=== PATIENT | male | born 1955 | race Caucasian/White ===

== ENCOUNTER → 2016-08-03 | Outpatient (REF) | payer MEDICARE, MEDICAID ==
[~2016-08-03] MED LIST: ALBU83IN INH; ATEN50TA2 PO; ATOR1TAB21 PO; Benzonatate PO; CLOB0.0548 TOP; DULC10SU2 PR; FERR325T PO; FLEEENE4 PR; LAMI200T3 PO; LASI80TA PO; LEVA750T PO; METO25TAB PO; MILKSUS PO; POTA10CA PO; SENO8.6T10 PO; SODIGEL; SPIR25TA2 PO; TYLE325T5 PO; TYLE500T78 PO; VITMTA PO; XARE20TA PO; [UNRECOGNIZED DRUG - CODE] PO
[2016-08-03 08:29] LABS: MEAN CORPUSCULAR HEMOGLOBIN 24.8 pg (27.0-33.0); MEAN CORPUSCULAR HGB CONC 31.6 g/dl (32.0-36.5); MEAN CORPUSCULAR VOLUME 78.7 fl (80.0-96.0); RED CELL DISTRIBUTION WIDTH 17.7 % (11.5-14.5); WHITE BLOOD COUNT 12.7 K/mm3 (4.0-10.0)
[2016-08-03 09:42] LABS: ALBUMIN 3.4 GM/DL (3.2-5.2); ALBUMIN/GLOBULIN RATIO 1.17 (1.00-1.93); BILIRUBIN,TOTAL 0.3 MG/DL (0.2-1.0); CALCIUM LEVEL 8.8 MG/DL (8.8-10.2); CREATININE FOR GFR 1.6 MG/DL (0.70-1.30); POTASSIUM SERUM 4.4 MEQ/L (3.5-5.1); TOTAL PROTEIN 6.3 GM/DL (6.4-8.2)
== END ==
LOC: SKLAB7 07:00
DX: E11.9 Type 2 diabetes mellitus without complications (principal); I25.10 Atherosclerotic heart disease of native coronary artery without angina pectoris; E78.5 Hyperlipidemia, unspecified

== ENCOUNTER → 2016-08-31 | Outpatient (REF) | payer MEDICARE, MEDICAID ==
[2016-08-31 09:34] LABS: MEAN CORPUSCULAR HEMOGLOBIN 25.2 pg (27.0-33.0); MEAN CORPUSCULAR HGB CONC 31.8 g/dl (32.0-36.5); MEAN CORPUSCULAR VOLUME 79.2 fl (80.0-96.0); PLATELET COUNT, AUTOMATED 298 k/mm3 (150-450); RED CELL DISTRIBUTION WIDTH 16.2 % (11.5-14.5)
[2016-08-31 10:02] LABS: CREATININE FOR GFR 1.62 MG/DL (0.70-1.30); GLOMERULAR FILTRATION RATE 46.3 (>49)
[2016-08-31 15:24] LABS: DIFF SLIDE NUMBER 111
[2016-08-31 19:38] LABS: EOSINOPHILS 1 % (0-5)
== END ==
LOC: SKLAB7 08:00
DX: E11.9 Type 2 diabetes mellitus without complications (principal); I50.9 Heart failure, unspecified; D64.9 Anemia, unspecified

== ENCOUNTER → 2016-09-13 | Outpatient (REF) | payer MEDICARE, MEDICAID ==
[~2016-09-13] MED LIST changes: +AVEL1TAB PO; +BACITAB3 PO; +ENEM1ENE4 PR; +FURO40TA2 PO; +IPRASOL4 INH; +LOPE2TAB3 PO; +METO25TA PO; +PANT40TA2 PO; +POTA10LI10 PO; +PRED20TA PO; +PROT1TAB2 PO; +TERC0.4C TOP; +XARE15TA PO
[2016-09-13 14:31] LABS: CALCIUM LEVEL 9.2 MG/DL (8.8-10.2); CREATININE FOR GFR 1.62 MG/DL (0.70-1.30); GLOMERULAR FILTRATION RATE 46.3 (>49); POTASSIUM SERUM 4.3 MEQ/L (3.5-5.1)
[2016-09-13 14:51] LABS: BASO % 0.1 % (0.0-1.0); EOS # 0.1 K/mm3 (0.0-0.50); EOS % 0.5 % (0.0-3.0); LARGE UNSTAINED CELL # 0.2 K/mm3 (0.0-0.4); LARGE UNSTAINED CELL % 0.9 % (0.0-4.0); LYMPH # 1.2 K/mm3 (1.5-4.5); LYMPH % 6.5 % (24.0-44.0); MEAN CORPUSCULAR HEMOGLOBIN 25.7 pg (27.0-33.0); MEAN CORPUSCULAR HGB CONC 31.7 g/dl (32.0-36.5); MONO # 0.7 K/mm3 (0.0-0.8); MONO % 3.5 % (0.0-5.0); NEUTROPHILS # 16.9 K/mm3 (1.8-7.7); NEUTROPHILS % 88.5 % (36.0-66.0); PLATELET COUNT, AUTOMATED 291 k/mm3 (150-450); RED CELL DISTRIBUTION WIDTH 16.8 % (11.5-14.5); WHITE BLOOD COUNT 19.1 K/mm3 (4.0-10.0)
--- NOTE | 2016-09-13 16:27 | REP ---
PORTABLE CHEST: Single AP portable view of the chest was performed and compared to prior study of 07/04/2016. There are bilateral chronic interstitial findings with no evidence of new infiltrate. The heart appears enlarged. Mediastinal silhouette is unchanged. Mediastinal silhouette is unchanged. Study is limited as the patients chin overlies the left apex. Chest wall calcifications are again noted bilaterally. IMPRESSION: Cardiomegaly. No evidence of acute infiltrate. Signed by Nilson Feldman MD 09/13/2016 05:25 P
== END ==
LOC: SKLAB7 12:48
DX: I51.7 Cardiomegaly (principal); R05 Cough; R06.02 Shortness of breath

== ENCOUNTER 2016-09-16 16:26 | Inpatient (IN) | payer MEDICARE, MEDICAID ==
[~2016-09-16] VITALS: Ht 167.6 cm; Wt 124.1 kg
[~2016-09-16 16:26] MED LIST changes: -AVEL1TAB PO; -BACITAB3 PO; -ENEM1ENE4 PR; -FURO40TA2 PO; -IPRASOL4 INH; -LOPE2TAB3 PO; -METO25TA PO; -PANT40TA2 PO; -POTA10LI10 PO; -PRED20TA PO; -PROT1TAB2 PO; -TERC0.4C TOP; -XARE15TA PO
[2016-09-16] MEDS ORDERED: methylPREDNISolone INJ 125 MG/2 ML VIAL (J2930) IV ONE (16:45)
[2016-09-16 17:02] LABS: BASO % 0.1 % (0.0-1.0); EOS # 0.1 K/mm3 (0.0-0.50); EOS % 0.5 % (0.0-3.0); LARGE UNSTAINED CELL # 0.2 K/mm3 (0.0-0.4); LARGE UNSTAINED CELL % 0.6 % (0.0-4.0); LYMPH # 1.4 K/mm3 (1.5-4.5); LYMPH % 5.4 % (24.0-44.0); MEAN CORPUSCULAR HGB CONC 32.2 g/dl (32.0-36.5); MEAN CORPUSCULAR VOLUME 80.8 fl (80.0-96.0); MONO # 0.3 K/mm3 (0.0-0.8); NEUTROPHILS # 24.8 K/mm3 (1.8-7.7); NEUTROPHILS % 92.4 % (36.0-66.0); PLATELET COUNT, AUTOMATED 384 k/mm3 (150-450); RED CELL DISTRIBUTION WIDTH 16.7 % (11.5-14.5); WHITE BLOOD COUNT 26.9 K/mm3 (4.0-10.0)
[2016-09-16] MEDS: IPRATROPIUM 0.5MG/ALBUTEROL 2.5MG INH SOL UD 3ML (DUONEB)(J7620) NEB PRN ×2 (17:05→17:18)
[2016-09-16] MEDS ORDERED: POTA10LI10 PO (17:08)
[2016-09-16 17:09] LABS: ABG BASE EXCESS -2.8 (-2.0-2.0); ABG PARTIAL PRESSURE CO2 55.4 mmHg (35.0-45.0); ABG PARTIAL PRESSURE O2 78.5 mmHg (75.0-100.0); ABG STANDARD HCO3 22.1 MEQ/L (22.0-26.0); ABG TOTAL CO2 26.7 MEQ/L (23.0-31.0); ABG pH (ARTERIAL) 7.272 UNITS (7.350-7.450)
[2016-09-16] MEDS ORDERED: PROT1TAB2 PO (17:18)
[2016-09-16] MEDS ORDERED: IPRASOL4 INH (17:18)
[2016-09-16] MEDS ORDERED: BACITAB3 PO (17:18)
[2016-09-16] MEDS ORDERED: PRED20TA PO ×2 (17:18→18:44)
[2016-09-16] MEDS ORDERED: AVEL1TAB PO (17:18)
[2016-09-16] MEDS ORDERED: ONDANSETRON 4MG/2ML VIAL (J2405) IV PRN (18:15)
[2016-09-16] MEDS ORDERED: ACETAMINOPHEN TAB 650MG DOSE (2X325MG) PO PRN (18:15)
[2016-09-16] MEDS ORDERED: XARE15TA PO (18:47)
[2016-09-16] MEDS ORDERED: METO25TA PO (18:47)
[2016-09-16] MEDS ORDERED: LOPE2TAB3 PO (18:50)
[2016-09-16 18:59] LABS: ANION GAP 11 MEQ/L (8-16); BLOOD UREA NITROGEN 41 MG/DL (7-18); CALCIUM LEVEL 8.9 MG/DL (8.8-10.2); CARBON DIOXIDE LEVEL 25 MEQ/L (21-32); CHLORIDE LEVEL 100 MEQ/L (98-107); CREATININE FOR GFR 2.19 MG/DL (0.70-1.30); GLOMERULAR FILTRATION RATE 32.7 (>49); GLUCOSE, FASTING 152 MG/DL (80-110); POTASSIUM SERUM 4.7 MEQ/L (3.5-5.1); SODIUM LEVEL 136 MEQ/L (136-145)
[2016-09-16] MEDS ORDERED: ENEM1ENE4 PR (18:59)
[2016-09-16] MEDS ORDERED: SENO8.6T10 PO (18:59)
[2016-09-16] MEDS ORDERED: ATEN50TA2 PO (18:59)
[2016-09-16] MEDS ORDERED: FURO40TA2 PO (18:59)
[2016-09-16] MEDS ORDERED: PANT40TA2 PO (18:59)
[2016-09-16] MEDS ORDERED: TERC0.4C TOP (19:03)
--- NOTE | 2016-09-16 20:50 | REPUSA ---
CLINICAL HISTORY: SOB. TECHNIQUE: Multiple axial CT images were obtained through chest without IV contrast material. COMMENTS: There is no evidence of pleural or parenchymal-based mass. There are no pleural effusions. There is n o evidence of hilar or mediastinal lymphadenopathy. The heart and great vessels are within normal redmond its. The visualized portions of the liver are of uniform attenuation without mass or defect. There is no i ntra or extrahepatic biliary ductal dilatation. The spleen is unremarkable. The visualized pancreas i s of normal contour and attenuation characteristics. There is no evidence of adrenal mass. The visual ized portions of the kidneys present no abnormalities. The bony structures are free of lytic or blastic lesions. Multilevel degenerative changes are seen in volving the thoracic spine. Deformities and abormal density of numerous bilateral ribs and vertebral bodies may represent a metabolic abnormality. Scattered calcifications are seen involving the aorta and visualized major branches compatible with a therosclerosis. IMPRESSION: No evidence of acute thoracic pathology. Deformities and abormal density of numerous bilateral ribs and vertebral bodies may represent a metab olic abnormality. Thank you for your kind referral of this patient.
[2016-09-16 21:30] VITALS: BP 139/86
[2016-09-16] MEDS ORDERED: MOM 30ML SUSPENSION UDC PO PRN (21:30)
[2016-09-16] MEDS ORDERED: SENOKOT S TAB PO PRN (21:30)
[2016-09-16] MEDS ORDERED: FLEET ENEMA PR PRN ×2 (21:30→22:00)
[2016-09-16] MEDS ORDERED: ALBUTEROL SULFATE 2.5 MG/0.5 ML INH NEB SOLN NEB PRN (21:30)
--- NOTE | 2016-09-16 22:09 | PHACANCOPD ---
PHARMACY VANCOMYCIN DOSING Pt Demographics Demographics Patient Age:61 , Weight:124.700 , Gender: male Adjusted Body Weight Date: 09/16/16, Adjusted Body Weight: [89] Kg Events Past 24 Hours Events Past 24 Hours: NO: Change in CrCl, Dialysis, Diuretic Therapy, Elevation in WBC, Fever, Other, Pending Diagnostics, Pending Procedures Vancomycin Vancomycin Target Ranges: 10-20 mcg/ml Vancomycin Load Y/N: Yes Load Dose Date Time Vancomycin Load Dose: 2000MG Date: 09-16 Time: 2200 Vancomycin Dose Date: 09/16/16. Current Vancomycin Dose: [1000MG Q24H] Intermittent Dosing?: No Labs Labs Item Value Date Time White Blood Count 26.9 K/mm3 H 09/16/16 1651 Creatinine 2.19 MG/DL H 09/16/16 1826 Blood Urea Nitrogen 41 MG/DL H 09/16/16 1826 Vital Signs Label Value Date Time Patient Temperature 98.3 degrees F 09/16/16 2130 Temperature Source Tympanic 09/16/16 2130 Micro Microbiology 09/16/16 Blood Culture, Received Pending 09/16/16 Blood Culture, Received Pending 09/16/16 Influenza Virus Type A Antigen - Final, Complete 09/16/16 Influenza Virus Type B Antigen - Final, Complete Creatinine Clearance Date:09/16/16. Creatinine Clearance: [32]. Pending Labs Trough - @2100 Assessment and Plan Maintaining Current Dose?: Yes Reason for dose change: No Dose Change Pharmacist Note Pharmacist Note Date: 09/16/16. Pharmacist note:Dosed at 1000mg q24h with a trough scheduled for 09-18 @2100. Will continue to monitor ans make adjustments as needed. JERI PERAZA [facility] Sep 16, 2016 22:09
[2016-09-16] MEDS: VANCOMYCIN HCL 1,000 MG, VIAL MATE ADAPTER 1 EACH in D5W 250 ML IV SCH (22:11)
[2016-09-16] MEDS: lamoTRIgine 100MG TAB PO SCH (22:11)
[2016-09-16] MEDS: NYSTATIN 100,000 UNITS/GM TOPICAL PWD 15 GM TOP SCH (22:11)
[2016-09-16] MEDS: LACTOBACILLUS ACIDOPHILUS CAP (BACID) PO SCH (22:12)
[2016-09-16] MEDS: ATORVASTATIN 20 MG TAB PO SCH (22:12)
[2016-09-16] MEDS: SENOKOT S TAB PO SCH (22:12)
[2016-09-16] MEDS: ATENOLOL 50 MG TAB PO SCH (22:12)
[2016-09-16] MEDS: RIVAROXABAN 15 MG TAB (XARELTO) PO SCH (22:28)
[2016-09-16] MEDS ORDERED: VANCOMYCIN HCL 1,000 MG, VIAL MATE ADAPTER 1 EACH in D5W 250 ML IV ONE (23:00)
[2016-09-16 23:15] VITALS: O2SAT 93
[2016-09-16] MEDS: ALBUTEROL SULFATE 2.5 MG/0.5 ML INH NEB SOLN NEB SCH (23:33)
[2016-09-17] VITALS (22 sets, daily range): BP systolic 101–167; BP diastolic 54–88; O2SAT 95
[2016-09-17] MEDS: MEROPENEM INJ 1 GM in D5W MINI-BAG PLUS 100 ML IV SCH ×3 (01:07→23:47)
[2016-09-17] MEDS: ALBUTEROL SULFATE 2.5 MG/0.5 ML INH NEB SOLN NEB SCH ×6 (03:32→23:28)
[2016-09-17 04:42] LABS: EOS # 0.1 K/mm3 (0.0-0.50); EOS % 0.4 % (0.0-3.0); LARGE UNSTAINED CELL # 0.1 K/mm3 (0.0-0.4); LARGE UNSTAINED CELL % 0.5 % (0.0-4.0); LYMPH # 0.9 K/mm3 (1.5-4.5); LYMPH % 4.8 % (24.0-44.0); MEAN CORPUSCULAR HEMOGLOBIN 25.7 pg (27.0-33.0); MEAN CORPUSCULAR HGB CONC 31.9 g/dl (32.0-36.5); MEAN CORPUSCULAR VOLUME 80.6 fl (80.0-96.0); MONO # 0.3 K/mm3 (0.0-0.8); MONO % 1.5 % (0.0-5.0); NEUTROPHILS # 16.9 K/mm3 (1.8-7.7); NEUTROPHILS % 92.7 % (36.0-66.0); PLATELET COUNT, AUTOMATED 309 k/mm3 (150-450); RED CELL DISTRIBUTION WIDTH 16.8 % (11.5-14.5); WHITE BLOOD COUNT 18.3 K/mm3 (4.0-10.0)
[2016-09-17 04:55] LABS: ALBUMIN 3.4 GM/DL (3.2-5.2); ALBUMIN/GLOBULIN RATIO 0.87 (1.00-1.93); BILIRUBIN,TOTAL 0.3 MG/DL (0.2-1.0); CALCIUM LEVEL 8.7 MG/DL (8.8-10.2); CREATININE FOR GFR 2.05 MG/DL (0.70-1.30); GLOMERULAR FILTRATION RATE 35.3 (>49); MAGNESIUM LEVEL 2.4 MG/DL (1.8-2.4); POTASSIUM SERUM 4.6 MEQ/L (3.5-5.1); TOTAL PROTEIN 7.3 GM/DL (6.4-8.2)
[2016-09-17] MEDS ORDERED: methylPREDNISolone INJ 125 MG/2 ML VIAL (J2930) IV SCH (05:00)
[2016-09-17 05:57] LABS: ABG BASE EXCESS -5.8 (-2.0-2.0); ABG HCO3 22.6 MEQ/L (22.0-26.0); ABG PARTIAL PRESSURE CO2 57.1 mmHg (35.0-45.0); ABG PARTIAL PRESSURE O2 78.9 mmHg (75.0-100.0); ABG STANDARD HCO3 19.6 MEQ/L (22.0-26.0); ABG TOTAL CO2 24.4 MEQ/L (23.0-31.0)
[2016-09-17 05:59] LABS: ABG pH (ARTERIAL) 7.216 UNITS (7.350-7.450)
--- NOTE | 2016-09-17 07:23 | REP ---
PORTABLE CHEST: AP portable view of the chest is performed and compared with prior study of 09/13/2016. Chronic interstitial changes are unchanged bilaterally with no evidence of acute infiltrate. Heart is again enlarged. Mediastinal silhouette is unchanged. There are chest wall calcifications again present. IMPRESSION: Cardiomegaly and stable chronic findings without evidence of new infiltrate. Signed by Nilson Feldman MD 09/17/2016 01:53 P
[2016-09-17 08:08] LABS: ABG BASE EXCESS -3.5 (-2.0-2.0); ABG HCO3 23.4 MEQ/L (22.0-26.0); ABG PARTIAL PRESSURE CO2 49.5 mmHg (35.0-45.0); ABG PARTIAL PRESSURE O2 69.2 mmHg (75.0-100.0); ABG STANDARD HCO3 21.5 MEQ/L (22.0-26.0); ABG TOTAL CO2 24.9 MEQ/L (23.0-31.0); ABG pH (ARTERIAL) 7.293 UNITS (7.350-7.450)
[2016-09-17] MEDS ORDERED: FUROSEMIDE 40 MG TAB PO SCH (09:00)
[2016-09-17] MEDS: MULTIVITAMINS/MINERALS THERAP 1 TAB PO SCH (09:00)
[2016-09-17] MEDS: SENOKOT S TAB PO SCH ×2 (09:00→21:00)
[2016-09-17] MEDS: NYSTATIN 100,000 UNITS/GM TOPICAL PWD 15 GM TOP SCH ×2 (09:00→21:49)
[2016-09-17] MEDS ORDERED: FUROSEMIDE 40 MG/4 ML VIAL (J1940) IV SCH (09:00)
[2016-09-17] MEDS: lamoTRIgine 100MG TAB PO SCH ×2 (09:00→21:00)
[2016-09-17] MEDS: ATENOLOL 50 MG TAB PO SCH ×2 (09:00→20:51)
[2016-09-17] MEDS: LACTOBACILLUS ACIDOPHILUS CAP (BACID) PO SCH ×2 (09:00→21:00)
[2016-09-17] MEDS ORDERED: PANTOPRAZOLE 40MG TAB (PROTONIX) PO SCH (09:00)
[2016-09-17] MEDS: FERROUS SULFATE 325MG TAB PO SCH (09:00)
[2016-09-17] MEDS ORDERED: SPIRONOLACTONE 25 MG TAB PO SCH (09:00)
--- NOTE | 2016-09-17 09:14 | HPE ---
DATE OF ADMISSION: 09/16/2016 Mr. Cedeno is a patient of Dr. Katie Melara and a resident of [facility]. Chief complaint is shortness of breath. The following is a summary of his presentation: This is a 61-year-old who apparently has been short of breath for several days at [facility]. He has not been seen by his guardian in some time and history is obtained from records from [facility]. It appears as though he was prescribed Avelox on 09/13/2016, had increasing shortness of breath, was started on prednisone on 09/16/2016, without improvement. Later in the day on 09/16/2016, he was transferred to [facility]. In the emergency room he was thought to be quite short of breath, he was tachypneic with an elevated respiratory rate, and was also noted to be hypoxic on supplemental oxygen, was started on bilevel positive airway pressure (BiPAP) with good effect and I was called for admission. Currently, he says he is breathing more easily but he is a relatively poor historian. He is not complaining of any pain, chest pain, or shortness of breath. 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 Surgical history is notable for: An upper and lower endoscopy in 2005, apart from that is unknown. Family history is unknown. Socially, patient resides at [facility], does not smoke. ALLERGIES: He has allergy listed to PENICILLIN. Home medications are listed as the following: - Tylenol 500 mg by mouth every evening - Tylenol 650 mg every 4 hours as needed - albuterol inhaled every 2 hours as needed - DuoNebs inhaled three times a day - Dulcolax 10 mg per rectum ([place]) as needed - clobetasol topically twice a day - loperamide 2 mg by mouth as directed - moxifloxacin 400 mg by mouth every evening - prednisone 40 mg daily, was just started today - terconazole 0.4% cream topically twice a day - potassium chloride 20% liquid 20 mEq by mouth twice a day - atenolol 50 mg by mouth twice a day - atorvastatin 20 mg by mouth every evening - Senokot-S one tablet twice a day as needed and two tablets by mouth twice a day - enema as needed - ferrous sulfate 325 mg by mouth daily - Lasix 40 mg daily - lactobacillus one tablet by mouth twice a day - Lamictal 200 mg by mouth twice a day - metolazone 2.5 mg by mouth weekly - milk of magnesia as needed for constipation - multivitamin tablet daily - Protonix 40 mg daily - Xarelto 15 mg by mouth every evening - spironolactone 25 mg by mouth twice a day Review of systems is not meaningfully obtainable in this patient. Temperature 96.3, pulse 88, respiratory rate 20, blood pressure 128/70, 95% on BiPAP of 55% FiO2. He is awake and interactive, complaining of thirst. Head is normocephalic. Sinuses nontender. Pupils equally, round, and reactive, anicteric. Mucous membranes are moist. Neck is quite thick, I appreciate no elevation in jugular venous pressure (JVP), no hepatojugular reflux. Breathing is symmetrically diminished, I:E ratio is 1:4, there are upper airway sounds, no wheezes noted. Heart is distant sounding, normal S1, S2, is not tachycardic on my exam. Abdomen is quite protuberant, but is soft, nontender, there is no fluid wave. There is evidence of an umbilical hernia which is easily reducible. There is no significant lower extremity edema. He is weak or not moving his left side very well. He is not entirely compliant with the exam. He does have a foot drop splint on the left. He would seem to have a normal mood. Facies are symmetrical. White cell count 26.9, hemoglobin 14.2, and platelets of 384. BUN 41, creatinine 2.19, lactic acid 2.1, BNP 168, CK 35, troponin is less than 0.02. Blood gas was 7.27/55 with a pO2 of 78. Blood cultures are pending. Influenza swab negative. Chest CT shows no evidence of infiltrate. He has deformities and abnormal density of numerous bilateral ribs and vertebral bodies which are thought to be a metabolic abnormality. My assessment is as follows: This is a 61-year-old with multiple medical issues who presents with acute respiratory failure who requires bilevel positive airway pressure (BiPAP), an intensive care unit (ICU) admission, and at least two midnight hospital stay. Plan will be as follows: 1. Respiratory. Patient has improved with BiPAP. He has known obstructive sleep apnea and has been treated for a respiratory illness and failed outpatient treatment over the last 3 days. Will broaden up his antibiotic coverage. There is no evidence of infiltrate but he is dehydrated and that may change and he does live in the healthcare setting, also started steroids and nebulizer. Will continue with BiPAP tonight and attempt to take him off that as tolerated in the morning. 2. Patient has chronic kidney disease stage III. He is above his baseline level of creatinine. May benefit from gentle hydration this evening. He is complaining of thirst. He does have known cor pulmonale but certainly does not appear fluid overloaded. 3. The patient has congestive heart failure with diastolic dysfunction and cor pulmonale. Does not seem fluid overloaded. Has atrial fibrillation, this currently appears to be somewhat regular in rhythm. He is on Xarelto which is continued. 4. Patient has moderate intellectual impairment, spastic hemiplegia affecting his nondominant side. He does have a guardian, guardian is at bedside, and is useful in the discussion. Guardian does confirm that the patient does have an out of hospital DO NOT RESUSCITATE but would be willing to trial BiPAP. 5. Patient carries a diagnosis of diabetes by history but is apparently diet controlled and not on medications. Finger sticks are minimally elevated and this could be followed with morning labs. 6. Deep venous thrombosis (DVT) prophylaxis will be Xarelto. 7. This patient will be signed out to Dr. Madeline Macias.
[2016-09-17] MEDS ORDERED: NS 500 ML in APPROPRIATE DILUENT 1 EA IV ONE (10:00)
--- NOTE | 2016-09-17 10:23 | CCN ---
DATE: 09/17/2016 Critical care time was 1 hour. This excludes all procedures. Mr. Cedeno is a 61-year-old male. Apparently the patient was admitted with shortness of breath from [facility]. He had been on antibiotics since of September 13 and prednisone since September 16. He then came to [facility] with increased shortness of breath. He is on bilevel at the [facility] for obstructive sleep apnea. He has a history of congestive diastolic heart failure, E. coli bacteremia in June of 2016. He is unable to provide me any history currently. I was called to his bedside urgently due to the severity of his respiratory distress. He has been on BiPAP 20/8 obtaining tidal volumes of 500. He had a chest CT which does not show any evidence of pneumonia. On his chest CT he has significant restriction of the left lung from body habitus. PHYSICAL EXAMINATION: Temperature is 98.4, pulse is 85, blood pressure is 167/86, respiratory rate is 22, oxygen saturation is 95% on 0.50 FiO2. Patient currently on bilevel 20/8 with averaging 500 tidal volumes. GENERAL: Patient is obese, tachypneic, sitting in a 45 degrees upright position in obvious respiratory distress. HEENT: Sclerae clear and anicteric. Pupils equal, react to light. Mucous membranes are moist without lesions. Mallampati 4. NECK: Large circumference. Difficult to assess JVP. He has chronic contractures of his upper extremities. CARDIAC: Distant S1 and S2 without audible murmur, rub or gallop. PMI is difficult to palpate. PULMONARY: Upper airway rhonchi heard with mucus in the airway. I do not auscultate any wheeze. There is poor air entry bilaterally. ABDOMEN: Obese, soft, nontender, nondistended. No discernible hepatosplenomegaly. No masses or hernia. EXTREMITIES: No lower extremity edema. No clubbing or cyanosis. He has a chronic contracture of his left arm. SKIN: Multiple skin lesions on his right arm that is chronic. Skin is otherwise pale. No jaundice or bruising. NEUROLOGIC: No evidence of asterixis. No unilateral weakness. Chest CT shows no significant pulmonary infiltrate. There is quite a bit of motion artifact on the chest CT from 09/16/2016, but there is evidence of dynamic airway collapse. There is obvious restriction of the left lung field. Laboratory evaluation shows sodium of 139, potassium of 4.6, chloride of 103, bicarb of 24, BUN of 47, creatinine of 2.05, glucose of 141, albumin of 2.1, anion gap of 12, therefore elevated anion gap given the low albumin, pH 729, pCO2 of 49, pAO2 of 66.2 suggesting a combined respiratory and metabolic acidosis with hypoxia. White blood cell count is elevated 18.3; however, the patient is on high dose steroids. Hemoglobin is 13.0, hematocrit of 40.6 with a platelet count of 309 and neutrophilia of 92.7. IMPRESSION: 1. Hypercarbic hypoxic respiratory failure. Will continue bilevel noninvasive ventilation. However, given the fact that he has a concomitant metabolic acidosis, I am not sure exactly how well he will do over time. He is quite tachypneic despite obtaining tidal volumes of 500 mL. He is a DO NOT RESUSCITATE, DO NOT INTUBATE. Overall, my concern is for progression of his respiratory failure. I do not see a role for steroids in this setting if he does not have a history of bronchospasm or COPD. I believe he has restrictive lung impairment from his body habitus and progressive neurologic disease. There is no evidence of pneumonia on chest CT. I believe this is a hypoventilatory syndrome. 2. Renal failure likely the cause of his metabolic acidosis. Currently no acute indication for hemodialysis. 3. Leukocytosis. Possibly induced by steroids, however, the patient has a history of multiple infections. Would obtain urine as he does have a history of E. coli bacteremia back in June. He is covered on meropenem and vancomycin, however at this point in time we do not have a source of infection. He is too critical to move to a CT scanner to view his abdomen. His abdomen is obese and difficult to assess, but there is no evidence of pain to palpation or distension. Overall, the patient's status is guarded. He has respiratory failure and I suspect will not do well over time, given his concomitant medical issues. Critical care time 1 hour. This excludes all procedures.
[2016-09-17] MEDS: NS 1,000 ML IV SCH ×2 (11:00→21:50)
--- NOTE | 2016-09-17 13:05 | REP ---
RENAL ULTRASOUND: Real-time sonographic evaluation of the kidneys performed. The study is limited due to patient body habitus and inability to suspend respiration and change position. The kidneys are normal in size with increased echotexture suggesting medical renal disease. Right kidney measures 11.3 x 5.5 x 4.9 cm and left kidney 12.2 x 4.3 x 5.5 cm. There is no hydronephrosis. A cyst in the mid right kidney measures 9 mm in diameter. There is bilateral cortical thinning. There is no definite stone or mass. Incidental note is made of multiple small gallstones in the gallbladder. Urinary bladder is not well distended and not well evaluated. IMPRESSION: Increased echotexture of the kidneys with cortical thinning compatible with medical renal disease. No hydronephrosis. Gallstones in the gallbladder. Signed by Nilson Feldman MD 09/17/2016 01:58 P
--- NOTE | 2016-09-17 14:04 | IPN ---
DATE: 09/17/2016 Patient is seen and examined. Appears to be very much dyspneic, tachypneic, alert, following simple commands. Reported shortness of breath. Denies any chest pain, pressure or discomfort. Denies any abdominal pain. Was on bilevel positive airway pressure (BiPAP). Denies any nausea or vomiting. VITAL SIGNS: Temperature 98.4, pulse 85, respiratory rate 22, blood pressure 147/86, pulse oximetry 95% on BiPAP 20/8, FiO2 50%, backup rate of 8. LABORATORY DATA: WBC 18.3, hemoglobin and hematocrit 13/40.6, platelets 309. Chemistry: Sodium 139, potassium 4.6, chloride 103, bicarbonate 24, anion gap 12, BUN 47, creatinine 2.05, lactic acid 1.4, C-reactive protein 12.8. AB.29, 49.5, 69.2. PHYSICAL EXAMINATION: GENERAL: Patient on BiPAP, awake, alert, follows commands. HEENT: Normocephalic, atraumatic. Dry mucous membranes. NECK: Thick, unable to appreciate jugular venous distention (JVD). PULMONARY: Bilateral symmetrically diminished breath sounds, upper airway sound. No wheeze. CARDIAC: Distant, S1, S2, non-tachycardia. ABDOMEN: Obese, soft, nontender. No fluid wave. Positive bowel sounds. Umbilical hernia. EXTREMITIES: No significant lower extremity edema. Left upper extremity paralysis, chronic. ASSESSMENT AND PLAN: This is a 61-year-old male patient with underlying medical history of morbid obesity, cerebral palsy with spastic hemiplegia affecting nondominant side, cor pulmonale with congestive heart failure, right hear failure, history of methicillin-resistant Staphylococcus aureus (MRSA) and history of Escherichia (E) colitis bacteremia, obstructive sleep apnea on bilevel positive airway pressure (BiPAP), moderate intellectual disability, atrial fibrillation, gastroesophageal reflux disease (GERD), dysphagia, history of meningitis as a child, who presented with progressively worsening shortness of breath. 1. Acute hypercarbic hypoxic respiratory failure. Patient on BiPAP, underlying etiology infectious versus congestive heart failure (CHF) versus worsening restrictive lung disease versus bronchospasm. Patient is DO NOT RESUSCITATE (DNR)/DO NOT INTUBATE (DNI). Pulmonary, Dr. Ramos, consulted. CT of the chest appreciated. Followup blood cultures. Followup repeat arterial blood gas (ABG). Continue BiPAP 20/8, 50% FiO2, nebulizer treatments. Patient was on steroids previously. Case discussed with pulmonology, Dr. Ramos. Patient does not have chronic obstructive pulmonary disease (COPD) and might not even need steroids. We will taper steroids. Continue to follow ABG. 2. Metabolic acidosis. Lactic acid is normal. Likely etiology renal failure. See below. 3. Acute on chronic renal insufficiency. Baseline creatinine 1.6. Nephrology, Dr. Cardozo consulted. Patient seems to be volume depleted. Lasix and metolazone on hold. IV fluids ordered by nephrology. Case discussed with nephrology as well. 4. Leukocytosis with tachypnea. Patient is septic with unknown etiology. CT scan negative for any evidence of pneumonia. Urinalysis (UA) within normal limits. We will continue to search for sources of infection. C-reactive protein elevated. Started on meropenem and vancomycin. IV fluids given. 5. History of CHF with right-sided heart failure. Followup echocardiograms. Oxygen supplementation. Lasix on hold secondary to volume depletion and active infection. Strict intake and output, daily weights. Spironolactone also on hold as well as metolazone. Continue Lipitor, atenolol. 6. Atrial fibrillation. Continue atenolol and Xarelto. Continue to follow. 7. Obstructive sleep apnea. Patient on BiPAP. 8. Gastroesophageal reflux disease (GERD). Continue proton pump inhibitor (PPI). 9. Morbid obesity, complicating care. 10. History of cerebral palsy. Supportive care. Continue current medications. 11. Deep vein thrombosis (DVT) prophylaxis. Patient is on Xarelto for pulmonary embolism (PE). DISPOSITION: Case discussed with Dr. Kwon, Dr. Ramos, and Dr. Cardozo. Patient with severe respiratory distress, DO NOT RESUSCITATE/DO NOT INTUBATE as per guardian, medical orders for life-sustaining treatment (MOLST) form in chart, multiple comorbidities, poor fdc prognosis.
[2016-09-17] MEDS: methylPREDNISolone INJ 40 MG/1 ML VIAL (J2920) IV SCH (17:00)
[2016-09-17] MEDS: RIVAROXABAN 15 MG TAB (XARELTO) PO SCH (17:58)
--- NOTE | 2016-09-17 20:12 | ECGEPIP ---
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
[2016-09-17] MEDS: ATORVASTATIN 20 MG TAB PO SCH (21:00)
[2016-09-17] MEDS: VANCOMYCIN HCL 1,000 MG, VIAL MATE ADAPTER 1 EACH in D5W 250 ML IV SCH (21:49)
[2016-09-18] VITALS (21 sets, daily range): BP systolic 93–196; BP diastolic 52–96; O2SAT 94
[2016-09-18] MEDS: ALBUTEROL SULFATE 2.5 MG/0.5 ML INH NEB SOLN NEB SCH ×5 (02:36→20:49)
[2016-09-18] MEDS: methylPREDNISolone INJ 40 MG/1 ML VIAL (J2920) IV SCH (04:36)
[2016-09-18 04:40] LABS: BASO % 0.1 % (0.0-1.0); EOS # 0.1 K/mm3 (0.0-0.50); EOS % 0.3 % (0.0-3.0); LARGE UNSTAINED CELL # 0.4 K/mm3 (0.0-0.4); LARGE UNSTAINED CELL % 1.6 % (0.0-4.0); LYMPH # 0.8 K/mm3 (1.5-4.5); LYMPH % 3.6 % (24.0-44.0); MEAN CORPUSCULAR HEMOGLOBIN 25.8 pg (27.0-33.0); MEAN CORPUSCULAR HGB CONC 31.1 g/dl (32.0-36.5); MEAN CORPUSCULAR VOLUME 82.8 fl (80.0-96.0); MONO % 4.3 % (0.0-5.0); NEUTROPHILS # 21.1 K/mm3 (1.8-7.7); NEUTROPHILS % 90.2 % (36.0-66.0); PLATELET COUNT, AUTOMATED 294 k/mm3 (150-450); WHITE BLOOD COUNT 23.4 K/mm3 (4.0-10.0)
[2016-09-18 05:03] LABS: ALBUMIN 3.1 GM/DL (3.2-5.2); ALBUMIN/GLOBULIN RATIO 0.86 (1.00-1.93); BILIRUBIN,TOTAL 0.3 MG/DL (0.2-1.0); CALCIUM LEVEL 8.6 MG/DL (8.8-10.2); CREATININE FOR GFR 1.73 MG/DL (0.70-1.30); MAGNESIUM LEVEL 2.6 MG/DL (1.8-2.4); POTASSIUM SERUM 4.5 MEQ/L (3.5-5.1); TOTAL PROTEIN 6.7 GM/DL (6.4-8.2)
--- NOTE | 2016-09-18 05:51 | CR ---
DATE OF CONSULTATION: 09/17/2016 REQUESTING PHYSICIAN: Madeline Macias MD REASON FOR CONSULTATION: Management of acute kidney injury superimposed on chronic kidney disease. CHIEF COMPLAINT: Progressive shortness of breath. HISTORY OF PRESENT ILLNESS: Mr. Car Cedeno is a 61-year-old male with past medical history of chronic kidney disease stage III, with a baseline creatinine of around 1.3 to 1.4, with history of congestive heart failure (CHF) with diastolic dysfunction and cor pulmonale, multiple other comorbidities as mentioned below. He was sent from [facility] with progressive shortness of breath, which did not improve with nebulizations and prednisone. Patient was tachypneic in the emergency room. He was placed on bilevel positive airway pressure (BiPAP), started on nebulizations and steroids. His creatinine on admission was 2.19. Nephrology service was called for the management of acute kidney injury. Most of the history was obtained from the chart and from the medical team. Patient was unable to provide any history because he is currently on the BiPAP. PAST MEDICAL HISTORY: Past medical history of chronic kidney disease stage III, baseline creatinine of around 1.3 to 1.4,diabetes mellitus type 2, cerebral palsy with spastic hemiplegia, cor pulmonale chronic, diastolic congestive heart failure, history of obstructive sleep apnea on BiPAP in the [facility], history of meningitis in childhood, atrial fibrillation, gastroesophageal reflux disease. PAST SURGICAL HISTORY: Status post esophagogastroduodenoscopy (EGD) and colonoscopy in the past. ALLERGIES: Patient is allergic to PENICILLIN. FAMILY HISTORY: Patient is unable to provide any significant family history. SOCIAL HISTORY: Patient lives at [facility]. There is no history of smoking or drug abuse. MEDICATIONS: All the medications from [facility] were reviewed from medicine reconciliation in the chart and the significant medications include: - potassium chloride 20 mEq by mouth twice a day - Lasix 40 mg by mouth daily - metolazone 2.5 mg by mouth weekly - spironolactone 25 mg by mouth twice a day REVIEW OF SYSTEMS: Patient is unable to provide any reliable review of systems at this time, but he is in respiratory distress, currently on BiPAP, tachypneic. PHYSICAL EXAMINATION: GENERAL: Patient is awake, in moderate respiratory distress, wearing a BiPAP. Vital signs: Temperature is 98.8 degrees Fahrenheit. Blood pressure is 105/67. Pulse is 73. Respiratory rate of 24. Saturating 92% on BiPAP at 50% FiO2. Intake and output: Urine output recorded yesterday was 350 mL and urine output recorded so far today since overnight is 1140 mL. Weight on the bed scale is 124.9 kg. Patient is total 1 liter negative so far since yesterday. Head and neck exam: Extraocular muscles intact. Pupils equally round and reactive to light. Mucous membranes are very dry because patient is currently on BiPAP as well. Neck is supple. He is obese. I could not appreciate any jugular venous distention (JVD). Cardiovascular: S1 and S2, irregular rate. No murmur, rub or gallop. Respiratory: Decreased breath sounds at the bases. Diffuse expiratory rhonchi all over the lungs. Abdomen is soft, obese. No organomegaly. No ascites. Extremities: No clubbing or cyanosis. No edema of the extremities. 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 Skin: No rashes or ulcers. Lymph nodes: No significant cervical, axillary or inguinal lymphadenopathy. LABORATORY REVIEW: CBC showed a WBC of 26.9 on arrival and it is 8.3 today. Hemoglobin is 13. Platelets are 309. Urinalysis showed it was cloudy, proteins are 2+, nitrite was negative, leukocyte esterase was negative. ABG showed a pH of 7.29, pCO2 of 49.5, pO2 69.2, oxygen saturation is 92.8%. BMP showed sodium 139, potassium 4.6, chloride 103, bicarbonate 24, BUN 47, creatinine is 2.05, it was 2.19 yesterday. Glucose is 141. Lactate is 1.4 now. Calcium is 8.7. C-reactive protein is 12.8. Albumin is 3.4. Microbiology: Respiratory viral panel is negative. Urine culture are pending. Blood culture is negative so far. IMAGING: A renal ultrasound done today showed increased echotexture of the kidney with cortical thinning compatible with medical renal disease. No hydronephrosis. A CT of the chest done today showed no evidence of thoracic pathology. CURRENT INPATIENT MEDICATIONS: Patient is on: - intravenous (IV) meropenem 1 gram IV every 12 hours - vancomycin 1 gram IV every 24 hours - albuterol nebulizations every 2 hours as needed, shortness of breath - atenolol 50 mg twice a day - atorvastatin 20 mg nightly - Senokot - ferrous sulfate 325 mg by mouth daily - Lasix 40 mg by mouth daily - lactobacillus - lamotrigine 200 mg by mouth twice a day - Solu-Medrol 20 mg IV every 12 hours - Milk of Magnesia - multivitamin - nystatin powder - Zofran as needed - Protonix 40 mg by mouth daily - Xarelto 15 mg by mouth daily - Fleet enema as needed for constipation - spironolactone 25 mg by mouth twice a day ASSESSMENT: 61-year-old male with past medical history of chronic kidney disease stage III, history of diastolic congestive heart failure and cor pulmonale as well, obesity and obstructive sleep apnea, admitted this time with progressive shortness of breath, leukocytosis, lactic acidosis and acute kidney injury. PLAN: 1. Acute hypercapnic respiratory failure. Patient is already on IV steroids, IV antibiotics and nebulizations. Initial imaging did not show any infiltrate. Respiratory mariano, panel is negative. Rest of the management is as per pulmonary critical care team recommendations. 2. Acute kidney injury superimposed on chronic kidney disease. Patient's baseline creatinine is 1.3. He came in with leukocytosis and lactic acidosis, and he was still on his diuretics. I think clinically patient is dry at this time. I stopped the oral and IV diuretics of this patient. I have given the patient a gentle bolus of 500 mL of normal saline and I have started him on normal (NS) at 75 mL/hr times 2 liters. Continue to monitor intake and output. 3. History of diastolic congestive heart failure and cor pulmonale. As mentioned above, patient is not in fluid overload at this time. Diuretics are on hold at this time. 4. Atrial fibrillation. Patient's pulse rate is well controlled at this time. Continue current dose of atenolol 50 mg by mouth twice a day. Okay to continue Xarelto 15 mg by mouth daily as well. 5. Respiratory acidosis. Patient's pH on the arterial blood gas (ABG) was 7.29. He is currently on BiPAP. His serum bicarbonate is within the acceptable limit. He does not need any bicarbonate administration at this time. Thank you for involving us in the care of this patient. We shall be happy to follow the patient with you tomorrow morning. Plan of care was discussed with Dr. Madeline Macias today morning. ARACELI
--- NOTE | 2016-09-18 07:23 | ECHO ---
DATE OF PROCEDURE: 09/17/2016 REFERRING PHYSICIAN: Dr. Madeline Macias DIAGNOSIS: Dyspnea The patient measures 168 cm and weighs 125 kg. DIMENSIONS: IVS -1.3 LV - 4.5 LV - 1.3 LA - 3.4 Aorta - 3.2 FINDINGS: The study is of rather limited technical quality corresponding to patient's body habitus. Left ventricle is of normal size and overall normal systolic function with estimated EF around 60 to 65%. Mild LVH is noted. Right ventricle was poorly visualized but is probably normal size. Left atrium is grossly normal. Right atrium was poorly seen. Pericardial fat pad is noted. Aortic and mitral valves appear normal. Tricuspid valve also appears grossly normal even though visualization was limited. Pulmonic valve was not seen. Inferior vena cava is mildly dilated but does collapse with respiration indicative of likely mildly elevated central venous pressure. Aortic root is normal aortic arch and abdominal aorta were not visualized. Doppler interrogation: There is no aortic stenosis or insufficiency. There is also no significant mitral stenosis or insufficiency. No detectable TR signal was seen and consequently I am unable to estimate pulmonary artery pressure. Mitral inflow pattern and tissue Doppler imaging of mitral annulus reveal grade 1 diastolic dysfunction. CONCLUSION: 1. Study is of difficult technical quality. 2. Normal LV size with mild LVH, normal LV systolic function. Grade 1 diastolic dysfunction. 3. No significant valvular disease. 4. Normal mildly elevated central venous pressure. 5. Unable to estimate pulmonary artery pressure. COMMENT: SBE prophylaxis is not recommended.
[2016-09-18 08:00] LABS: ABG BASE EXCESS -2.5 (-2.0-2.0); ABG HCO3 24.4 MEQ/L (22.0-26.0); ABG PARTIAL PRESSURE CO2 50.8 mmHg (35.0-45.0); ABG PARTIAL PRESSURE O2 61.5 mmHg (75.0-100.0); ABG STANDARD HCO3 22.2 MEQ/L (22.0-26.0)
[2016-09-18] MEDS: FERROUS SULFATE 325MG TAB PO SCH (08:52)
[2016-09-18] MEDS: LACTOBACILLUS ACIDOPHILUS CAP (BACID) PO SCH ×2 (08:52→20:57)
[2016-09-18] MEDS: lamoTRIgine 100MG TAB PO SCH ×2 (08:53→20:57)
[2016-09-18] MEDS: ATENOLOL 50 MG TAB PO SCH ×2 (08:53→20:58)
[2016-09-18] MEDS: SENOKOT S TAB PO SCH ×2 (08:53→20:57)
[2016-09-18] MEDS: MULTIVITAMINS/MINERALS THERAP 1 TAB PO SCH (08:54)
[2016-09-18] MEDS: ENOXAPARIN 120 MG/0.8 ML SYR (J1650) SC SCH (09:24)
[2016-09-18] MEDS: PANTOPRAZOLE 40MG INJ (PROTONIX) (C9113) IV SCH (09:24)
[2016-09-18] MEDS: NYSTATIN 100,000 UNITS/GM TOPICAL PWD 15 GM TOP SCH ×2 (09:24→21:52)
--- NOTE | 2016-09-18 11:03 | IPN ---
DATE: 09/16/2016 Time patient was seen was at 8:30. The patient has been seen and examined at bedside. The patient continues to be on bilevel positive airway pressure (BIPAP) 28 with FiO2 of 40. The patient stated that he is breathing better and he is feeling better in general. Denies any chest pain. Denies any fever or chills. Any abdominal pain. Any nausea, vomiting, diarrhea or constipation. Any problem with urination. Denies any discomfort anywhere. However, the patient appears to be slightly karl this morning with a heart rate of 53. PHYSICAL EXAMINATION: VITAL SIGNS: Temperature 96.8, pulse 84, respirations 20, blood pressure 149/85 , oxygen saturation was 92% on BIPAP 28, FiO2 50%. GENERAL: The patient is an obese, elderly male who was alert, awake, and oriented times three. Appears to be in mild distress. Sitting up in his bed at 45 degree angle. HEENT: Normocephalic, atraumatic. Extraocular motors intact. Mucosa moist. NECK: Supple. The patient does have a thick neck and difficult to feel lymphadenopathy at the neck due to obesity. CARDIOVASCULAR: Difficult to auscultate due to body habitus. LUNGS: Diffuse wheezing bilaterally. Increased AP diameter. ABDOMEN: Morbid obesity. Positive bowel sounds. Soft, nontender, nondistended. No peritoneal signs. EXTREMITIES: Significant atrophy in the left lower extremity. Otherwise, no pitting edema. SKIN: Warm and dry. NEUROLOGIC: Cranial nerves II through XII intact. The patient does have left sided paresis with contracted left upper extremity. SKIN: Warm and dry. There was a 5 x 10 plaque skin lesion on the left lower extremity. PSYCHIATRIC: Normal affect. The patient does have underlying cerebral palsy and developmental delay. LABORATORY DATA: WBC 23.4, hemoglobin 12.8, hematocrit 41.1 with a platelet count of 294, MCV of 82.8. Sodium 145, potassium 4.5, chloride 110, bicarbonate 25, anion gap 10, BUN 49, creatinine 1.73, GFR 43, fasting glucose 113, calcium 8.6, magnesium 2.6, AST 12 , ALT 15, alkaline phosphatase 50, C-reactive protein 3.94, total protein 5.7, albumin 3.1. The patient's ABG this morning shows a pH of 7.3, PCO2 of 50.8, PO2 of 61.5, oxygen was saturating at 88.5% with base excess of -2.5. The patient's blood culture times two shows no growth after 24 hours and respiratory panel was negative. Urine culture is pending. The patient had a renal ultrasound yesterday that shows increased echotexture of kidneys with cortical thinning, compatible with medical renal disease. However, there was no hydronephrosis and there were also gallstones in the gallbladder. ASSESSMENT AND PLAN: 61-year-old male with underlying medical history of morbid obesity, cerebral palsy with spastic hemiplegia affecting nondominant side and cor pulmonale with congestive heart failure (CHF), right sided heart failure, history of methicillin resistant Staphylococcus aureus (MRSA) and history of Escherichia (E) coli bacteremia, obstructive sleep apnea on bilevel positive airway pressure (BIPAP), moderate intellectual disability, atrial fibrillation, gastroesophageal reflux disease (GERD), dysphagia, history of meningitis as a child, who presented with progressively worsening shortness of breath. 1. Acute hypercapnic, hypoxic respiratory failure, currently on BIPAP, underlying etiology infectious versus heart failure versus worsening restrictive lung disease versus bronchospasm. The patient is DO NOT RESUSCITATE, DO NOT INTUBATE, and a resident at [facility]. Pulmonary, Dr. Ramos, has been consulted. We will follow her recommendations. Continue BIPAP at 28 and FiO2 of 50%, nebulizer treatments and according to pulmonology, the patient does not have COPD and may not need steroids, which has been tapered. We will continue to follow ABG. 2. Metabolic acidosis. Lactic acid was trending down. We will continue to follow. 3. Acute on chronic renal insufficiency. Baseline creatinine was 1.6. Nephrology, Dr. Cardozo, has been consulted, believed the patient was volume depleted. Therefore, we will continue to hold Lasix and metolazone and IV fluid repletion, per nephrology. 4. Leukocytosis with tachypnea and elevated C-reactive protein. The patient was septic; however, with no etiology. Infectious disease. Dr. Zamudio, has been consulted. At this moment, CT did not show any evidence of pneumonia. Urine culture is currently pending. We will continue the patient on meropenem and vancomycin and continue IV fluid. 5. History of congestive heart failure (CHF) with right sided heart failure. Continue echocardiogram, oxygen supplementation. Continue to hold Lasix due to volume depletion and active infection. Continue to restrict input. Continue to monitor daily weights. Continue Lipitor and atenolol. 6. Atrial fibrillation. Continue atenolol. The patient could not tolerate oral Xarelto due to BiPAP. Therefore, the patient has been placed on Lovenox. We will continue to monitor. We will restart Xarelto once the patient is able to swallow. 7. Obstructive sleep apnea. Continue on BiPAP. 8. Gastroesophageal reflux disease (GERD). Continue on proton pump inhibitor. 9. Morbid obesity, which complicates care. 10. History of cerebral palsy. Continue supportive care. Continue current medications. 11. Deep vein thrombosis (DVT) prophylaxis. The patient's Xarelto has been on hold due to unable to tolerate oral. For the patient's history of pulmonary embolism, the patient has been started on subcutaneous Lovenox. We will continue to monitor. DISPOSITION: Dr. Macias has discussed with Dr. Melara, Dr. Ramos, and Dr. Cardozo. We have also consulted Dr. Zamudio to rule out infectious etiology. The patient is currently DO NOT RESUSCITATE, DO NOT INTUBATE. Prognosis is guarded. Per patient's guardian, medical order for Medical Orders for Life Sustaining Treatment (MOLST) form is in the chart. The patient has multiple comorbidities and poor long-term prognosis. The patient has been discussed with attending doctor, Dr. Macias. My preceptor for this patient encounter was Dr. Macias. The preceptor was physically present in the building during the encounter and was fully available. As needed , all aspects of the patient interview, examination, medical decision making process, and medical care plan development were reviewed and approved by the preceptor. The preceptor is aware and concurs with the plan as stated in the body of this note and will attest to such by his/her cosignature. I have both independently examined this patient as well as reviewed the note. I have discussed in detail with the resident the findings and plan of treatment as documented in the residents note. I will continue to follow the patient and offer further guidance to the patients care as necessary during this hospital stay. Discussed with family, patient currently unable the weaned off bipap. Unfortunately, if patient does not want to be intubated, and not able to come off of bipap, palliative care might be the final outcome. Madeline CHARLES
[2016-09-18] MEDS: MEROPENEM INJ 1 GM in D5W MINI-BAG PLUS 100 ML IV SCH (11:52)
--- NOTE | 2016-09-18 12:05 | REP ---
CHEST, PORTABLE: AP portable view of the chest is performed and compared to a prior study of 09/16/2016. Mild chronic interstitial changes bilaterally appear stable. There is no new infiltrate or pulmonary edema. The heart is enlarged. The mediastinal silhouette is unchanged. There are degenerative changes of the spine. IMPRESSION: Stable exam with no acute infiltrate. Signed by Nilson Feldman MD 09/18/2016 04:15 P
[2016-09-18] MEDS ORDERED: NS 1,000 ML IV SCH (12:45)
[2016-09-18] MEDS: NS 1,000 ML IV SCH (12:51)
[2016-09-18] MEDS: ATORVASTATIN 20 MG TAB PO SCH (20:57)
[2016-09-19] VITALS (17 sets, daily range): BP systolic 106–185; BP diastolic 55–86; O2SAT 95
[2016-09-19] MEDS ORDERED: diltiaZEM 125 MG in NS 100 ML IV SCH (00:30)
[2016-09-19] MEDS: ALBUTEROL SULFATE 2.5 MG/0.5 ML INH NEB SOLN NEB SCH ×7 (04:00→23:52)
[2016-09-19 05:20] LABS: ALBUMIN 3.4 GM/DL (3.2-5.2); ALBUMIN/GLOBULIN RATIO 0.77 (1.00-1.93); BILIRUBIN,TOTAL 0.3 MG/DL (0.2-1.0); CALCIUM LEVEL 8.8 MG/DL (8.8-10.2); CREATININE FOR GFR 1.45 MG/DL (0.70-1.30); GLOMERULAR FILTRATION RATE 52.7 (>49); MAGNESIUM LEVEL 2.9 MG/DL (1.8-2.4); POTASSIUM SERUM 4.8 MEQ/L (3.5-5.1); TOTAL PROTEIN 7.8 GM/DL (6.4-8.2)
[2016-09-19 05:47] LABS: BASO % 0.2 % (0.0-1.0); EOS # 0.1 K/mm3 (0.0-0.50); EOS % 0.5 % (0.0-3.0); LARGE UNSTAINED CELL # 0.3 K/mm3 (0.0-0.4); LARGE UNSTAINED CELL % 2.1 % (0.0-4.0); LYMPH # 0.8 K/mm3 (1.5-4.5); LYMPH % 5.2 % (24.0-44.0); MEAN CORPUSCULAR HEMOGLOBIN 25.8 pg (27.0-33.0); MEAN CORPUSCULAR VOLUME 86.1 fl (80.0-96.0); MONO # 1.1 K/mm3 (0.0-0.8); MONO % 6.7 % (0.0-5.0); NEUTROPHILS # 13.8 K/mm3 (1.8-7.7); NEUTROPHILS % 85.3 % (36.0-66.0); PLATELET COUNT, AUTOMATED 209 k/mm3 (150-450); RED CELL DISTRIBUTION WIDTH 17.1 % (11.5-14.5); WHITE BLOOD COUNT 16.1 K/mm3 (4.0-10.0)
[2016-09-19] MEDS: methylPREDNISolone INJ 40 MG/1 ML VIAL (J2920) IV SCH (06:01)
[2016-09-19] MEDS: FERROUS SULFATE 325MG TAB PO SCH (08:25)
[2016-09-19] MEDS: ATENOLOL 50 MG TAB PO SCH ×2 (08:25→21:00)
[2016-09-19] MEDS: lamoTRIgine 100MG TAB PO SCH ×2 (08:25→21:00)
[2016-09-19] MEDS: LACTOBACILLUS ACIDOPHILUS CAP (BACID) PO SCH ×2 (08:25→21:00)
[2016-09-19] MEDS: SENOKOT S TAB PO SCH ×2 (08:25→21:00)
[2016-09-19] MEDS: MULTIVITAMINS/MINERALS THERAP 1 TAB PO SCH (08:26)
[2016-09-19] MEDS: ENOXAPARIN 120 MG/0.8 ML SYR (J1650) SC SCH (08:45)
[2016-09-19] MEDS: PANTOPRAZOLE 40MG INJ (PROTONIX) (C9113) IV SCH (08:46)
--- NOTE | 2016-09-19 08:52 | IPN ---
DATE: 09/18/2016 SUBJECTIVE: The patient was seen and examined at the bedside in intensive care unit (ICU) this morning. He continues to be on bilevel positive airway pressure (BIPAP), and he is unable to take the BiPAP off. He has significant shortness of breath. The patient was given IV fluids yesterday and with gentle hydration his kidney function is significantly better as compared with yesterday. However, he continues to have significant leukocytosis. Blood cultures are negative so far. He continues to be on IV antibiotics. REVIEW OF SYSTEMS: I was unable to do any reliable review of systems in the patient, who has a BiPAP on. However, he continues to be in significant shortness of breath, and the patient is nothing by mouth at this time because of BiPAP. He is otherwise hemodynamically stable. OBJECTIVE: VITAL SIGNS: Temperature is 97.2 degrees Fahrenheit, blood pressure is 144/77, pulse is 84, respiratory rate of 20, saturating 93% on BiPAP, 40% FiO2. Intake and output: Urine output recorded as 1.6 liters yesterday and 700 mL so far today since overnight. Weight on the bed scale is 123 kg. PHYSICAL EXAMINATION: GENERAL: The patient is awake and alert. He is in moderate respiratory distress. He is currently on BiPAP. HEAD AND NECK EXAM: Extraocular muscles intact. Pupils are equal, round and reactive to light. Mucous membranes are moist today. Neck is supple. There is no jugular venous distention (JVD). CARDIOVASCULAR: S1, S2. Regular rate. No murmur, rub or gallop. RESPIRATORY: Decreased breath sounds at the bases. Diffuse moderate expiratory rhonchi all over the lungs. ABDOMEN: Obese, soft, positive bowel sounds. Nontender. No ascites. No organomegaly. The patient has an indwelling Mcdaniel catheter. EXTREMITIES: No clubbing or cyanosis. Very trace edema of the bilateral lower extremities. CENTRAL NERVOUS SYSTEM (BLIND ESCORT): The patient has spastic paralysis of the left upper arm. Otherwise, no focal neurological deficits. SKIN: No rashes at this time. As reported by nursing staff, he has erythema in the sacral region but no ulcers. LABORATORY REVIEW: CBC showed a WBC of 23.4, hemoglobin is 12.8, platelets are 294. Urinalysis showed that it was cloudy with 2+ protein and leukocyte esterase was negative. Nitrite was negative. ABG showed a pH of 7.3, PCO2 of 50.8, PO2 of 61.5, bicarbonate is 24, oxygen saturation is 88.5%. BMP showed sodium 145, potassium 4.5, chloride 110, bicarbonate 25, BUN 49, creatinine is 1.7, it was 2.05 yesterday, glucose 113, magnesium is 2.6, calcium 8.6, albumin is 3.1. Microbiology: Respiratory viral panel and blood cultures are negative so far. Urine culture is pending. IMAGING: Chest x-ray, portable, done this morning showed mild chronic interstitial changes. There was no new infiltrate or pulmonary edema. CURRENT MEDICATIONS: The patient's current medications were all reviewed by me. He is on normal saline at 75 mL an hour, which will be finished today by noontime. He continues to be on intravenous antibiotics. His diuretics are on hold. ASSESSMENT: 61-year-old male with past medical history of chronic kidney disease stage III, history of diastolic congestive heart failure (CHF), cor pulmonale, obesity, and obstructive sleep apnea admitted this time with progressive shortness of breath, leukocytosis and lactic acidosis, along with acute kidney injury. PLAN: 1. Acute kidney injury superimposed on chronic kidney disease. The patient's baseline creatinine is 1.3. His diuretics were held yesterday. He is getting gentle hydration. His creatinine came down to 1.73 today. Continue to monitor off diuretics at this time. 2. Acute hypercapnic respiratory failure. IV steroids, nebulizations and bilevel positive airway pressure (BIPAP) is as per primary team and pulmonary critical care service. The patient is a DO NOT RESUSCITATE, so he is being managed with BiPAP at this time. 3. Respiratory acidosis. The patient's pH is 7.3. His main problem is respiratory. His serum bicarbonate is within the acceptable range. No need of bicarbonate administration at this time. 4. History of diastolic congestive heart failure (CHF) and cor pulmonale. I have reviewed the repeat chest x-ray. There is no evidence of fluid overload or interstitial edema on the chest x-ray. His repeat BNP is also pending. I have given the patient IV fluid hydration in the last 24 hours. I am going to hold the fluids and monitor the patient off of diuretics. 5. Atrial fibrillation. Heart rate is controlled at this time. The patient's Xarelto is in hold. He is currently on subcutaneous Lovenox.
[2016-09-19] MEDS ORDERED: metOLazone 2.5 MG TAB PO SCH (09:00)
[2016-09-19] MEDS: NYSTATIN 100,000 UNITS/GM TOPICAL PWD 15 GM TOP SCH ×2 (09:00→21:20)
[2016-09-19] MEDS: KCL 20MEQ IN D5W 1000ML 1,000 ML IV SCH ×2 (11:12→23:58)
--- NOTE | 2016-09-19 12:04 | IPN ---
DATE: 09/19/2016 Time patient was seen was this morning at 8:30. The patient has been seen and examined at bedside. The patient did have an episode of tachycardia overnight; however, at the time of the interview, the patient's heart rate was in the 80s. Otherwise, the patient admits to feeling better. Denies any chest pain or trouble breathing, any abdominal pain, nausea, vomiting, diarrhea, constipation. The patient; however, continued to be on BiPAP managed per pulmonary, and the patient was approached yesterday regarding comfort measures only; however, Dr. Ramos talked with family member this morning and found out that the patient's legal guardian has and the patient is mentally disabled. Therefore, he will require [facility] involvement. PHYSICAL EXAMINATION: VITAL SIGNS: Temperature 97.6, pulse 80, respirations 28, blood pressure 126/76 , oxygen saturation was 97% on BIPAP 28, FiO2 60%. GENERAL: The patient is a mentally disabled, elderly gentleman who was alert, awake, and oriented times three. He has left sided hemiparesis. HEENT: Normocephalic, atraumatic. Extraocular motors intact. Mucosa moist. NECK: Supple. No neck lymphadenopathy. The patient does have a short neck and difficult to palpate due to obesity. CARDIOVASCULAR: Difficult to auscultate due to increased AP diameter and obesity. LUNGS: Diffuse wheezing bilaterally. ABDOMEN: Obese. Positive bowel sounds. Soft, nontender, nondistended. No peritoneal signs. No ecchymoses. EXTREMITIES: No edema, clubbing or cyanosis. The patient has significant atrophy in the left lower extremity. Muscle strength was reduced on the left side as well. LABORATORY DATA: WBC 16.1, hemoglobin 13.2, hematocrit 44.1, platelet count of 209, MCV 86.1. Sodium 146, potassium 4.6, chloride 103, bicarbonate 27, anion gap 6, BUN 46, creatinine 1.45, improved from 1.73 yesterday, GFR 52.7, fasting glucose 120, calcium 8.8, magnesium elevated at 2.9, total bilirubin 0.3, AST 23, ALT 31, alkaline phosphatase 52, C-reactive protein 1.94, improved from yesterday 3.94, total protein 7.8, albumin 3.4. Blood culture shows no growth after 48 hours times two. Urine culture shows no growth after 2 days. No new imaging. ASSESSMENT AND PLAN: 61-year-old male with past medical history of morbid obesity, cerebral palsy with spastic hemiplegia affecting nondominant side and cor pulmonale with congestive heart failure (CHF), right sided heart failure, history of methicillin resistant Staphylococcus aureus (MRSA), history of Escherichia (E) coli bacteremia, obstructive sleep apnea on bilevel positive airway pressure (BIPAP), moderate intellectual disability, atrial fibrillation, gastroesophageal reflux disease (GERD), dysphagia, history of meningitis as a child, who presented with progressively worsening shortness of breath. 1. Acute hypercapnic, hypoxic respiratory failure, currently on BIPAP. Likely secondary to severe, advanced restrictive lung disease. The patient is DO NOT RESUSCITATE, DO NOT INTUBATE and a resident at [facility]. Pulmonary, Dr. Ramos, has been consulted. We will follow her recommendations. Currently, the patient is on BIPAP at 20/8 and FiO2 of 60%. Dr. Ramos has spoken to the patient's family member and found out that the patient's legal guardian has actually . Therefore, we will need [facility] involvement regarding deciding the patient's future plans. Yesterday , Dr. Macias, had spoken to the patient regarding possible comfort measures only; however, at this point, it will be decided with [facility]. 2. Metabolic acidosis, resolved. Continue to monitor. 3. Acute on chronic renal insufficiency. Continues to improve. Nephrology, Dr. Cardozo, has been consulted, we will follow his recommendations. 4. Leukocytosis with tachypnea and elevated C-reactive protein. Currently, C-reactive protein has been trending down. Dr. Zamudio from infectious disease was consulted yesterday and she has discontinued meropenem and vancomycin as this is less likely infectious in etiology. At this point, we will continue to follow. Cultures have been negative so far. 5. History of congestive heart failure (CHF) with right sided heart failure. Status post echocardiogram. We will continue to hold Lasix due to volume depletion. Continue to monitor the patient. Continue Lipitor and atenolol. 6. Atrial fibrillation. Continue atenolol. The patient did have an episode of rapid ventricular rate last night. However, this morning, the patient's heart rate has been back to baseline. The patient's Xarelto has been on hold due to nothing by mouth. The patient has been placed on Lovenox. We will continue to monitor. 7. Obstructive sleep apnea. Continue to monitor. 8. Gastroesophageal reflux disease (GERD). Continue Protonix. 9. Morbid obesity. Continue to monitor. Morbid obesity does complicate care. 10. Cerebral palsy. Continue supportive care. 11. Deep vein thrombosis (DVT) prophylaxis. On Lovenox. DISPOSITION: Dr. He has discussed with Dr. Melara, Dr. Ramos, and Dr. Cardozo. Dr. Zamudio has been consulted as well. The patient is DO NOT RESUSCITATE, DO NOT INTUBATE. The patient's legal guardian has and therefore we will need [facility] involvement for deciding comfort measures only for the patient. The patient has been discussed with attending doctor, Dr. Arvizu. My preceptor for this patient encounter was Dr. Arvizu. The preceptor was physically present in the building during the encounter and was fully available. As needed, all aspects of the patient interview, examination, medical decision making process, and medical care plan development were reviewed and approved by the preceptor. The preceptor is aware and concurs with the plan as stated in the body of this note and will attest to such by his/her cosignature. ARACELI
--- NOTE | 2016-09-19 19:25 | IPN ---
DATE: 09/19/2016 SUBJECTIVE: The patient was seen and examined at the bedside in the intensive care unit (ICU) this morning. He continues to be on bilevel positive airway pressure (BIPAP) at this time. Last 24 hour events were noted. Patient had atrial fibrillation with RVR. He was started on Cardizem drip, however he converted into sinus rhythm and currently his Cardizem drip is off. He continues to improve his renal function, however patient is hyponatremic today. REVIEW OF SYSTEMS: Patient is unable to provide any review of systems at this time. He is currently on bi-level positive airway pressure (BiPAP). He continues to be short of breath and he is unable take his bi-level positive airway pressure (BiPAP) mask off. OBJECTIVE: VITAL SIGNS: Temperature is 97.6 degrees Fahrenheit, blood pressure is 126/76, pulse is 80, respiratory rate of 38, saturating 97% on BiPAP, 60% FiO2. INTAKE AND OUTPUT: Urine output recorded as 1.5 liters yesterday, 680 mL so far today since overnight. Bed scale weight is not available. PHYSICAL EXAMINATION: GENERAL: The patient is awake and alert. He is in moderate respiratory distress. Wearing BiPAP. HEAD AND NECK EXAM: Extraocular muscles intact. Pupils are equal, round and reactive to light. Mucous membranes are dry because patient is constantly on bi-level positive airway pressure (BiPAP). Neck is supple. There is no jugular venous distention (JVD). CARDIOVASCULAR: S1, S2. Regular rate. No murmur, rub or gallop. RESPIRATORY: Decreased breath sounds at the bases. Diffuse moderate expiratory rhonchi over the lungs, especially at the bases. ABDOMEN: Obese, soft, positive bowel sounds. Nontender. No ascites. No organomegaly. The patient has Mcdaniel catheter at this time. EXTREMITIES: No clubbing or cyanosis. No edema of the bilateral lower extremities. CENTRAL NERVOUS SYSTEM (STEEL BURNER): The patient has spastic paralysis of the left upper arm. Otherwise, no new focal neurological deficits. SKIN: No rashes at this time. Patient has stage 1 sacral decubitus ulcer as reported by nursing staff. LABORATORY REVIEW: CBC showed a WBC of 16.1, hemoglobin is 13.2, platelets are 209. BMP showed sodium 146, potassium 4.8, chloride 113, bicarbonate 27, BUN is 46, creatinine is 1.45. It is better than yesterday it was 1.7 yesterday. Microbiology: All the cultures are negative so far. IMAGING: There is no new chest x-ray available today. CURRENT MEDICATIONS: The patient's current medications were all reviewed by me. His Cardizem is on hold. Patient was started on D5W plus 20 mEq of KCL at 75 mL an hour today by me. His Solu-Medrol dose has been changed to 30 mg IV every 24 hourly. ASSESSMENT: 61-year-old male with past medical history of chronic kidney disease stage III with a baseline creatinine of 1.3. History of diastolic congestive heart failure (CHF), cor pulmonale, morbid obesity, and obstructive sleep apnea admitted this time with progressive shortness of breath, leukocytosis and lactic acidosis, causing acute hypercapnic respiratory failure. Nephrology service following the patient for management of acute kidney injury. PLAN: 1. Acute kidney injury superimposed on chronic kidney disease. It was most likely secondary to volume depletiomn. Patient's renal function did improve after holding diuretics and starting IV fluids. Patient's creatinine is 1.4 today, which is almost close to his baseline creatinine. Patient is nothing by mouth. He is unable to tolerate anything orally because of bi-level positive airway pressure (BiPAP). I am starting the patient on gentle IV fluid hydration. 2. Hypernatremia secondary to patients inability to take oral fluids. I have started patient on D5W plus 20 mEq of KCL at 75 mL an hour. Hopefully sodium level will improve with the IV hydration. 3. Hypercapnic and hypoxemic respiratory failure. Patient is DO NOT RESUSCITATE He is currently on bi-level positive airway pressure (BiPAP). Bi-level positive airway pressure (BiPAP) management is per primary service. Patient does not need any bicarbonate administration at this time. 4. History of diastolic congestive heart failure (CHF) and cor pulmonale. Patients volume status is well optimized. His BNP was normal yesterdray. He has no clinical signs of fluid overload. He is actually volume depleted because of inability to take food and oral fluids because of bi-level positive airway pressure (BiPAP). Continue the IV fluid hydration as mentioned above. 5. Atrial fibrillation. Patient was in atrial fibrillation with RVR yesterday. He was started on Cardizem and his heart rate converted to sinus rhythm. His Xarelto is on hold. He is currently on weight based Lovenox 120 mg subcutaneous once a day.
[2016-09-19] MEDS: ATORVASTATIN 20 MG TAB PO SCH (21:00)
[2016-09-20] VITALS (14 sets, daily range): BP systolic 102–170; BP diastolic 61–105; O2SAT 97–98
[2016-09-20] MEDS ORDERED: METOPROLOL 5 MG/5 ML VIAL IV ONE ×2 (00:30→02:30)
[2016-09-20] MEDS: ALBUTEROL SULFATE 2.5 MG/0.5 ML INH NEB SOLN NEB SCH ×6 (03:03→23:35)
[2016-09-20 05:16] LABS: BASO % 0.1 % (0.0-1.0); EOS # 0.1 K/mm3 (0.0-0.50); EOS % 0.4 % (0.0-3.0); LARGE UNSTAINED CELL # 0.3 K/mm3 (0.0-0.4); LYMPH # 0.9 K/mm3 (1.5-4.5); LYMPH % 6.8 % (24.0-44.0); MEAN CORPUSCULAR HEMOGLOBIN 25.7 pg (27.0-33.0); MEAN CORPUSCULAR VOLUME 85.6 fl (80.0-96.0); MONO # 0.8 K/mm3 (0.0-0.8); NEUTROPHILS # 11.6 K/mm3 (1.8-7.7); NEUTROPHILS % 84.7 % (36.0-66.0); PLATELET COUNT, AUTOMATED 228 k/mm3 (150-450); RED CELL DISTRIBUTION WIDTH 17.1 % (11.5-14.5); WHITE BLOOD COUNT 13.6 K/mm3 (4.0-10.0)
[2016-09-20] MEDS: methylPREDNISolone INJ 40 MG/1 ML VIAL (J2920) IV SCH (05:20)
[2016-09-20 05:21] LABS: ALBUMIN 3.1 GM/DL (3.2-5.2); ALBUMIN/GLOBULIN RATIO 0.79 (1.00-1.93); BILIRUBIN,TOTAL 0.4 MG/DL (0.2-1.0); CALCIUM LEVEL 8.3 MG/DL (8.8-10.2); CREATININE FOR GFR 1.3 MG/DL (0.70-1.30); GLOMERULAR FILTRATION RATE 59.7 (>49); MAGNESIUM LEVEL 2.7 MG/DL (1.8-2.4); POTASSIUM SERUM 4.7 MEQ/L (3.5-5.1)
[2016-09-20] MEDS: LACTOBACILLUS ACIDOPHILUS CAP (BACID) PO SCH ×2 (07:51→21:00)
[2016-09-20] MEDS: FERROUS SULFATE 325MG TAB PO SCH (07:51)
[2016-09-20] MEDS: MULTIVITAMINS/MINERALS THERAP 1 TAB PO SCH (07:52)
[2016-09-20] MEDS: SENOKOT S TAB PO SCH ×2 (07:52→21:00)
[2016-09-20] MEDS: lamoTRIgine 100MG TAB PO SCH ×2 (07:52→21:00)
[2016-09-20] MEDS: ATENOLOL 50 MG TAB PO SCH (07:52)
[2016-09-20 08:34] LABS: PHOSPHORUS LEVEL 2.5 MG/DL (2.5-4.9)
[2016-09-20] MEDS: PANTOPRAZOLE 40MG INJ (PROTONIX) (C9113) IV SCH (08:34)
[2016-09-20] MEDS: ENOXAPARIN 120 MG/0.8 ML SYR (J1650) SC SCH (08:34)
[2016-09-20] MEDS: NYSTATIN 100,000 UNITS/GM TOPICAL PWD 15 GM TOP SCH ×2 (08:34→22:03)
[2016-09-20] MEDS: METOPROLOL 5 MG/5 ML VIAL IV SCH ×4 (08:37→22:02)
[2016-09-20] MEDS: D5W 1,000 ML IV SCH ×2 (08:51→19:54)
--- NOTE | 2016-09-20 11:36 | CCN ---
DATE: 09/20/2016 On critical care bedside rounds this morning I evaluated Car Cedeno. Car has been in respiratory failure without significant improvement since admission. He continues to use abdominal muscles to breathe. He will not tolerate being off bilevel for even a second. He screams if the BiPAP as taken off because he cannot breathe. He has been unable to take any nutrition during his entire hospitalization. His family at bedside, which is his only family that is alive, expresses that they would not want him to suffer. They state that they would not want him to have any invasive mechanical ventilation, life support, or CPR. In fact, we are waiting for evaluation from the regulatory office in order to receive permission to carry out the family's and the patient' s wishes. I however believe that the patient is suffering, has an irreversible restrictive lung impairment, and is unable to take nutrition. I believe attempting to keep him alive is cruel and have asked for an expedited decision. I have made the patient a DO NOT RESUSCITATE as I believe this is what is the best for the patient and what the family of the patient desires. I will act in the best interest of the patient. I have instructed my nursing staff not to perform CPR on the patient. In the meantime, we will support with BiPAP until a decision is made. ARACELI
[2016-09-20 12:05] LABS: ABG BASE EXCESS -1.6 (-2.0-2.0); ABG HCO3 25.5 MEQ/L (22.0-26.0); ABG PARTIAL PRESSURE CO2 52.7 mmHg (35.0-45.0); ABG PARTIAL PRESSURE O2 105.3 mmHg (75.0-100.0); ABG STANDARD HCO3 23.2 MEQ/L (22.0-26.0); ABG TOTAL CO2 27.1 MEQ/L (23.0-31.0); ABG pH (ARTERIAL) 7.302 UNITS (7.350-7.450)
--- NOTE | 2016-09-20 12:48 | IPN ---
DATE OF SERVICE: 09/20/2016 The time the patient was seen was at 8:45. The patient has been seen and examined at bedside. The patient had another atrial fibrillation (AFib) with rapid ventricular response (RVR) last night. However, was rate controlled in the morning. The patient himself, however, denies any discomfort this morning. Denies any chest pain, trouble breathing, any abdominal pains, nausea, vomiting, diarrhea, or constipation. The patient, however, remains on bilateral positive airway pressure (BiPAP) and Mcdaniel. Yesterday, process has been started to obtain guardianship due the patient's mental disability with [facility]. Will continue to followup. PHYSICAL EXAMINATION: VITAL SIGNS: Temperature 97.9, pulse 89, respiration 32, blood pressure 140/73, oxygen was saturating at 96% on BiPAP with FiO2 of 60%. GENERAL: The patient is a mentally disabled elderly obese male. The patient was alert, awake, and oriented times two. Resting comfortably in bed with head elevated at 45-degree angle. HEENT: Normocephalic, atraumatic. Extraocular motor intact. Mucosa moist. NECK: Supple. Difficult to palpate neck due to obesity. The patient was on BiPAP. CARDIOVASCULAR: Difficult to auscultate due to increased AP diameter. LUNGS: Slight diffuse wheezing bilaterally. Also, the patient has increased AP diameter. ABDOMEN: Obese. Positive bowel sounds. Soft, nontender, nondistended. No peritoneal signs. EXTREMITIES: No edema, clubbing, or cyanosis. The patient does have a significant atrophy in the left lower extremity. SKIN: Warm and dry. NEUROLOGIC: Cranial nerves II-XII intact. However, muscle strength was 2/5 in bilateral upper and lower extremities. LABORATORIES: WBC 13.6, hemoglobin 12.2, hematocrit 40.7, with a platelet count of 228, MCV of 85.6. Sodium 148, potassium 4.7, chloride 113, bicarbonate 31, BUN 36, creatinine 1.3 improved from 1.45 yesterday, GFR 59.7%, glucose 135, calcium 8.3, phosphorus 2.5, magnesium 2.7, total bilirubin 0.4, AST 37, ALT 61, alkaline phosphatase 47 , CRP 1.75 improved from day before 1.94, total protein 7, albumin 3.1. Blood culture shows no growth after 3 days. Otherwise, no new cultures. No new imaging. ASSESSMENT AND PLAN: A 61-year-old male with past medical history of morbid obesity, cerebral palsy with spastic hemiplegia affecting nondominant side, and cor pulmonale with congestive heart failure (CHF), right-sided heart failure, history of methicillin resistant Staphylococcus aureus (MRSA), Escherichia (E.) coli bacteremia, obstructive sleep apnea on bilateral positive airway pressure (BiPAP) at night, moderate intellectual disability, atrial fibrillation, gastroesophageal reflux disease (GERD), dysphagia, history of meningitis as a child, who presented with: 1. Acute hypercapnic hypoxic respiratory failure, currently on BiPAP. Likely, secondary to advanced restrictive lung disease. The patient is DO NOT RESUSCITATE, DO NOT INTUBATE, and a resident at [facility]. Pulmonary, Dr. Ramos, has been consulted. Will follow her recommendations on BiPAP management. Currently, BiPAP is on 04/03 at FiO2 of 60% . Due to the patient's moderate intellectual disability and his legal guardian , he is undergoing [facility] involvement regarding future guardianship. At this point, due to no reversible causes for his hypoxic respiratory failure, initially the patient was approached regarding comfort measures only. However, at this point, he cannot make decision by himself. 2. Metabolic acidosis, resolved. 3. Acute on chronic renal insufficiency. Continues to improve. Nephrology, Dr. Cardozo, has been consulted. Will follow his recommendations. 4. Leukocytosis with initially elevated C-reactive protein (CRP). Dr. Zamudio was consulted and recommended to discontinue antibiotic. All cultures have been negative so far. 5. Atrial fibrillation with rapid ventricular response. The patient is nothing by mouth. Therefore, he has no been taking his atenolol. The patient did have episodes of RVR overnight. Will start the patient on scheduled metoprolol 5 mg every 6 hours with hold parameters. Hold if systolic blood pressure is less than 120 or if heart rate is less than 80. In addition, the patient's Xarelto is on hold due to nothing by mouth, and the patient has been placed on therapeutic Lovenox. 6. History of heart failure. Continue to monitor. Continue home medications. 7. Gastroesophageal reflux disease (GERD). Continue Protonix. 8. Morbid obesity, which complicates care. 9. Cerebral palsy. Continue supportive care. 10. Deep vein thrombosis (DVT) prophylaxis. On Lovenox. DISPOSITION: The patient is DO NOT RESUSCITATE, DO NOT INTUBATE. However, the patient cannot make his own decision regarding comfort measures only care due to mental disability. Currently, [facility] is involved regarding guardianship for the patient. The patient has been discussed with attending doctor, Dr. Arvizu. My preceptor for this patient encounter was Dr. Jayem Arvizu. The preceptor was physically present in the building during the encounter and was fully available. As needed, all aspects of the patient interview, examination, medical decision making process, and medical care plan development were reviewed and approved by the preceptor. The preceptor is aware and concurs with the plan as stated in the body of this note and will attest to such by his/her cosignature. ARACELI
--- NOTE | 2016-09-20 13:43 | REP ---
PORTABLE CHEST: AP portable view of the chest is performed and compared to prior study of 09/18/2016. Cardiomegaly is again noted. Mediastinal silhouette is unchanged. Lung carrizales are unchanged with no acute infiltrate. IMPRESSION: No definite acute infiltrate identified. Signed by Nilson Feldman MD 09/21/2016 04:37 P
--- NOTE | 2016-09-20 16:42 | CR ---
DATE OF CONSULTATION: 09/18/2016 REFERRING PHYSICIAN: Hospitalist. REASON FOR CONSULTATION: Evaluation of respiratory failure. HISTORY OF PRESENT ILLNESS: Mr. Cedeno is a 61-year-old gentleman who is a resident of [facility], patient of Dr. Melara, who was admitted to [facility] on 09/16 with complaints respiratory distress The patient was started on moxifloxacin on 09/13 and prednisone without any improvement. The patient was noted to be tachypneic, dyspneic and was hypoxic and therefore was transferred to [facility] and was admitted to the intensive care unit (ICU). The patient was started on BiPAP with improved symptoms. He had a chest x-ray which did not show any acute infiltrate and a CT which also did not show any evidence of pulmonary embolism or infiltrate. His history is pretty poor. He is on BiPAP. He was started on broad-spectrum antibiotic and intravenous (IV) steroids. PAST MEDICAL HISTORY: Significant for: 1. Obstructive sleep apnea. 2. Congestive diastolic heart failure. 3. History of E-coli bacteremia June 2016 from a urinary source. LABORATORY DATA: On admission his white count was 26,000, but the patient had been started on prednisone. On 09/17 white count is 18.3, on 09/18 it was 23.4, hemoglobin 12.8, hematocrit 41.1, platelets 294. Sodium 145, potassium 4.5, chloride 110, bicarb 25, BUN 49, creatinine 1.7, glucose 113, calcium 8.6, magnesium 2.6, AST 12, ALT 15, alkaline phosphatase 150, CRP 3.94 down from 12.8. Urinalysis had 11 white cells, many red cells. Arterial blood gas (ABG) on admission: pH was 7.27, pCO2 55, pO2 78. On 09/17 pH was 7.292, pCO2 49, pO2 69. On 09/18 ABG showed pH was 7.3, pCO2 50, pCO2 61. Blood cultures, two sets were done on 09/16 and were negative. Influenza A and B was negative. Respiratory panel was negative. Urine culture was negative. IMAGING STUDIES: Chest x-ray showed cardiomegaly and stable chronic changes but no evidence of acute infiltrate. CT chest showed no evidence of acute thoracic pathology. Deformity and abnormality of numerous bilateral ribs may represent a metabolic abnormality. But there was no acute infectious process. Renal ultrasound shows echotexture of the kidneys compatible with medical renal disease but no hydronephrosis. There were gallstones in the gallbladder and repeat chest x-ray done on 09/18 again showed no infiltrate. MEDICATIONS: - Spironolactone 25 mg by mouth twice a day - probiotics 1 tablet by mouth twice a day - albuterol/Atrovent nebulizers - ferrous sulfate 325 by mouth mg daily - meropenem 1 gram IV every 12 hours - vancomycin 1 gram IV every 24 hours - atenolol 50 mg by mouth twice a day - methylprednisolone 30 mg IV every 12 hours - Senokot 2 tablets by mouth twice a day - Zofran as needed ALLERGIES: PENICILLIN. PHYSICAL EXAMINATION: GENERAL: He is an obese gentleman in mild respiratory discomfort, alert, able to respond but with difficulty due to the BiPAP, HEART: Normal S1-S2. No murmurs appreciated. LUNGS: Diminished air entry but clear. ABDOMEN: Morbidly obese, soft, nontender. EXTREMITIES: Trace edema. No clubbing or cyanosis. No rashes. No skin lesions. VITAL SIGNS: Pulse 80, respirations 26, blood pressure 134/79, O2 sat 94% on BiPAP with an FIO2 of 40%. NEUROLOGIC: Moves all extremities but difficult to obtain. IMPRESSION: This is a 61-year-old gentleman with a history of sleep apnea, morbid obesity who was admitted with respiratory failure, hypercarbic and hypoxic who has improved on BiPAP. The patient does not have any evidence of infection whether urine or chest and therefore there is no need for intravenous (IV) antibiotics, especially those broad-spectrum. I have reviewed the notes from Dr. Ramos who believes he has a restrictive lung impairment from his body habitus with progressive neurologic disease and hypoventilatory syndrome. Leukocytosis is probably steroid induced and stress-induced from difficulty breathing. Urine culture and blood cultures have been negative. PLAN Discontinue IV vancomycin. Discontinue IV cefepime. Continue with respiratory support with BiPAP. Infectious disease signing off. [facility]
--- NOTE | 2016-09-20 19:14 | IPN ---
DATE: 09/20/2016 SUBJECTIVE: The patient was seen and examined at the bedside in the intensive care unit (ICU) today morning. The patient continues to be on IV bilevel positive airway pressure (BiPAP). His renal function continues to improve; however, his hypernatremia is worse than yesterday. REVIEW OF SYSTEMS: I was unable to do review of systems on this patient who is wearing a BiPAP. He is unable to take the BiPAP off because of his respiratory distress. OBJECTIVE: VITAL SIGNS: Temperature is 97.9 degrees Fahrenheit, blood pressure is 140/73, pulse is 88, respiratory rate of 32, saturating 96% on BiPAP at 60% FiO2. INTAKE AND OUTPUT: Urine output recorded at 1580 mL yesterday, 735 mL so far today since overnight. The patient is in negative fluid balance, negative 60 mL since overnight. Weight in the bed scale is 123.3 kg. PHYSICAL EXAMINATION: GENERAL: The patient is awake and drowsy. He is on BiPAP. He is in moderate respiratory distress. HEAD/NECK: Extraocular muscles intact. Pupils equal, round, and reactive to light. Mucous membranes are very dry because of the BiPAP. Neck is supple. There is no jugular venous distention (JVD). CARDIOVASCULAR: S1, S2. Regular rate. No murmur, rub, or gallop. RESPIRATORY: Decreased breath sounds at the bases. Diffuse, moderate inspiratory rhonchi over the lungs, especially at the bases. ABDOMEN: Obese, soft. Positive bowel sounds. Nontender. No ascites. No organomegaly. He has a Mcdaniel catheter. EXTREMITIES: No clubbing or cyanosis. No edema of the bilateral lower extremities. CENTRAL NERVOUS SYSTEM (INDUSTRIAL SALES REPRESENTATIVE): The patient has spastic paralysis of the left upper arm; otherwise no focal neurological deficits. SKIN: No rashes. LABORATORY DATA: CBC showed a WBC of 13.6, hemoglobin 12.2, platelets are 228. BMP shows sodium 148, potassium 4.7, chloride 113, bicarbonate 31, BUN 36, creatinine is 1.3 which is better than yesterday, it was 1.45 yesterday. Calcium is 8.3, magnesium 2.7, albumin 3.1. MICROBIOLOGY: All the cultures are negative so far. CURRENT MEDICATIONS: The patient's medications were all reviewed by me. His IV fluids were changed to dextrose 5% in water (D5W) at 100 mL an hour, and he has been started on metoprolol 5 mg IV every six hours for atrial fibrillation. ASSESSMENT: A 61-year-old male with past medical history of chronic kidney disease stage III, with a baseline creatinine of 1.3, history of diastolic congestive heart failure, cor pulmonale, morbid obesity, obstructive sleep apnea, admitted this time with progressive shortness of breath, leukocytosis and lactic acidosis. He is currently on BiPAP because of hypercapnic and hypoxemic respiratory failure. Nephrology service is following the patient for management of acute kidney injury and electrolyte abnormalities. PLAN: 1. Acute kidney injury superimposed on chronic kidney disease stage III. The patient's creatinine continues to improve with IV fluid hydration. I would continue the IV gentle hydration. Continue to hold the diuretics. Creatinine has improved to 1.3 today. 2. Hypernatremia. Hypernatremia is secondary to patient's inability to take oral liquids because of BiPAP. I have changed the IV fluids to D5W at 100 mL an hour. 3. Hypercapnic and hypoxemic respiratory failure. The patient is DO NOT RESUSCITATE (DNR). He is currently on BiPAP. BiPAP management is as per pulmonary critical care service. 4. Atrial fibrillation with rapid ventricular rate. The patient has been started on metoprolol 5 mg IV every six hours. Heart rate is controlled at this time. 5. History of diastolic congestive heart failure and cor pulmonale. The patient's volume status is optimized. He is actually dry because of inability to take any liquids and diet orally. Continue to hold diuretics at this time. Continue gentle IV fluid hydration with IV D5W.
[2016-09-20] MEDS: ATORVASTATIN 20 MG TAB PO SCH (21:00)
[2016-09-20] MEDS ORDERED: METOPROLOL 5 MG/5 ML VIAL IV STA ×2 (22:15→22:37)
[2016-09-21] VITALS (9 sets, daily range): BP systolic 121–147; BP diastolic 62–99; O2SAT 93
[2016-09-21] MEDS: METOPROLOL 5 MG/5 ML VIAL IV SCH ×2 (02:09→09:26)
[2016-09-21] MEDS: ALBUTEROL SULFATE 2.5 MG/0.5 ML INH NEB SOLN NEB SCH ×2 (03:55→07:09)
[2016-09-21] MEDS: D5W 1,000 ML IV SCH ×2 (04:31→20:00)
[2016-09-21] MEDS: diltiaZEM 125 MG in NS 100 ML IV SCH ×2 (04:31→11:00)
[2016-09-21 05:26] LABS: BASO % 0.1 % (0.0-1.0); EOS # 0.1 K/mm3 (0.0-0.50); EOS % 0.4 % (0.0-3.0); LARGE UNSTAINED CELL # 0.2 K/mm3 (0.0-0.4); LARGE UNSTAINED CELL % 1.4 % (0.0-4.0); LYMPH # 1.1 K/mm3 (1.5-4.5); MEAN CORPUSCULAR HEMOGLOBIN 25.6 pg (27.0-33.0); MEAN CORPUSCULAR HGB CONC 30.1 g/dl (32.0-36.5); MEAN CORPUSCULAR VOLUME 85.1 fl (80.0-96.0); MONO # 0.7 K/mm3 (0.0-0.8); NEUTROPHILS # 11.1 K/mm3 (1.8-7.7); NEUTROPHILS % 84.9 % (36.0-66.0); PLATELET COUNT, AUTOMATED 241 k/mm3 (150-450); RED CELL DISTRIBUTION WIDTH 16.8 % (11.5-14.5)
[2016-09-21 05:32] LABS: ALBUMIN 3.2 GM/DL (3.2-5.2); ALBUMIN/GLOBULIN RATIO 0.86 (1.00-1.93); ALKALINE PHOSPHATASE 47 U/L (45-117); ALT/SGPT 129 U/L (12-78); ANION GAP 4 MEQ/L (8-16); AST/SGOT 70 U/L (15-37); BILIRUBIN,TOTAL 0.9 MG/DL (0.2-1.0); BLOOD UREA NITROGEN 27 MG/DL (7-18); CALCIUM LEVEL 8.3 MG/DL (8.8-10.2); CARBON DIOXIDE LEVEL 33 MEQ/L (21-32); CHLORIDE LEVEL 107 MEQ/L (98-107); CREATININE FOR GFR 1.05 MG/DL (0.70-1.30); GLOMERULAR FILTRATION RATE > 60.0 (>49); GLUCOSE, FASTING 120 MG/DL (80-110); MAGNESIUM LEVEL 2.4 MG/DL (1.8-2.4); POTASSIUM SERUM 4.4 MEQ/L (3.5-5.1); SODIUM LEVEL 144 MEQ/L (136-145); TOTAL PROTEIN 6.9 GM/DL (6.4-8.2)
[2016-09-21] MEDS: LACTOBACILLUS ACIDOPHILUS CAP (BACID) PO SCH (08:50)
[2016-09-21] MEDS: MULTIVITAMINS/MINERALS THERAP 1 TAB PO SCH (08:50)
[2016-09-21] MEDS: SENOKOT S TAB PO SCH (08:50)
[2016-09-21] MEDS: FERROUS SULFATE 325MG TAB PO SCH (08:50)
[2016-09-21] MEDS: lamoTRIgine 100MG TAB PO SCH (08:50)
[2016-09-21] MEDS: NYSTATIN 100,000 UNITS/GM TOPICAL PWD 15 GM TOP SCH (09:25)
[2016-09-21] MEDS: PANTOPRAZOLE 40MG INJ (PROTONIX) (C9113) IV SCH (09:25)
[2016-09-21] MEDS: ENOXAPARIN 120 MG/0.8 ML SYR (J1650) SC SCH (09:26)
[2016-09-21] MEDS ORDERED: MORPHINE SULFATE CADD 100 MG in APPROPRIATE DILUENT 1 EA IV SCH (10:42)
[2016-09-21] MEDS ORDERED: MORPHINE 10MG/0.5ML ORAL CONCENTRATE SOLUTION U/D SL PRN (10:45)
[2016-09-21] MEDS ORDERED: EPIDURAL/PCA KEYS XX PRN (10:45)
[2016-09-21] MEDS ORDERED: SCOPOLAMINE 1.5 MG TRANSDERMAL TD PRN (10:45)
[2016-09-21] MEDS ORDERED: LORazepam 2 MG/ML VIAL (J2060) IV PRN ×2 (10:45→11:00)
[2016-09-21] MEDS ORDERED: MORPHINE 2 MG/ML 1ML SYRINGE IV PRN (10:45)
[2016-09-21] MEDS ORDERED: ATROPINE SULFATE 1% OP SOLN 2 ML BTL SL PRN (10:45)
--- NOTE | 2016-09-21 12:21 | IPN ---
DATE: 09/21/2016 The time the patient was seen was this morning at 8:30. The patient has been seen and examined at bedside. The patient had another atrial fibrillation with rapid ventricular response (RVR) overnight and was started on Cardizem drip. Heart rate was around 130s. When I saw the patient, the patient feels the same as yesterday. Denies any chest pain, abdominal pain, any problem with urination or diarrhea or constipation. The patient continues to agree with comfort measures only. In addition, [facility] has approved the patient's medical conditions regarding comfort measures. Dr. Arvizu and I also met with the family this morning and it is discussed about the comfort measures only and the family agrees that this was the plan that they wanted. The patient also confirmed that he agrees about comfort measures. After speaking with Dr. Ramos, we have decided to continue with the plan. PHYSICAL EXAMINATION: VITAL SIGNS: Temperature 97.8, pulse 150, respiration 24, blood pressure 125/62, oxygen saturating 91% on BiPAP with FiO2 of 50%. GENERAL: The patient is a mentally disabled, elderly male who was on BiPAP with head elevated at 45 degree angle. HEENT: Normocephalic, atraumatic. Extraocular motor intact. Mucosa moist. NECK: Supple. No neck lymphadenopathy. CARDIOVASCULAR: Irregularly irregular. Difficult to auscultate due to increased AP diameter and the patient was on BiPAP. LUNGS: Diffuse rales and wheezing bilaterally. ABDOMEN: Obese. Positive bowel sounds. Soft, nontender, nondistended. No peritoneal signs. No ecchymoses. EXTREMITIES: No edema, clubbing, or cyanosis. SKIN: Warm and dry. NEUROLOGIC: Cranial nerves II-XII intact. LABORATORIES: WBC 13, hemoglobin 12.7, hematocrit 42.2, with a platelet count of 241, MCV of 85.1. Sodium 144, potassium 4.4, chloride 107, bicarbonate 27, creatinine 1.05, GFR greater than 60, fasting glucose 120, calcium 8.3. No new imaging. ASSESSMENT AND PLAN: A 61-year-old male with multiple comorbidities, more significantly including morbid obesity, cerebral palsy with intellectual disability, heart failure, history of methicillin resistant Staphylococcus aureus (MRSA) and Escherichia (E.) coli bacteremia, obstructive sleep apnea, who presented with: 1. Acute hypercapnic, hypoxic respiratory failure, currently on BiPAP. The patient was a DO NOT RESUSCITATE, DO NOT INTUBATE. Pulmonary, Dr. Ramos, has been consulted and recommended that there is no reversible cause and the patient likely will benefit from comfort measures only. The patient has agreed with comfort measures only; however, due to patient's guardian has , therefore [facility] were involved and family agreed with [employer]ICE [employer]YER MECHANIC, and this morning [facility] approved with the plan. We have discussed with the family again and agreed on the plan. Therefore, this morning, we are planning on making patient RICE [employer]YER MECHANIC and making patient comfortable. 2. Metabolic acidosis, resolved. 3. Acute on chronic renal insufficiency. Nephrology was consulted. We will follow their recommendations. 4. Leukocytosis with elevated C-reactive protein (CRP). Dr. Zamudio was consulted and recommended to discontinue antibiotic. 5. Atrial fibrillation with rapid ventricular response. The patient continues to be in rapid ventricular rate this morning and was on Cardizem drip overnight. We will continue to monitor. 6. History of heart failure. Continue to monitor. 7. Gastroesophageal reflux disease (GERD). Continue Protonix. 8. Morbid obesity, which complicates care. 9. Cerebral palsy with intellectual disability. Continue supportive care. 10. Deep vein thrombosis (DVT) prophylaxis with Lovenox. DISPOSITION: We have met with the patient's family again this morning and agreed with the plan to make the patient comfort measures only. [facility] has approved with the plan. The patient also agrees. We will proceed with comfort measures this morning. Expect the patient to pass away within the next one or two days. The patient has been discussed with attending doctor, Dr. Arvizu. My preceptor for this patient encounter was Dr. Arvizu. The preceptor was physically present in the building during the encounter and was fully available. As needed, all aspects of the patient interview, examination, medical decision making process, and medical care plan development were reviewed and approved by the preceptor. The preceptor is aware and concurs with the plan as stated in the body of this note and will attest to such by his/her cosignature.
[2016-09-21] MEDS ORDERED: ATRO1OPD PO (13:19)
[2016-09-21] MEDS ORDERED: MORP1SOL PO (13:19)
[2016-09-21] MEDS ORDERED: LORA1TAB12 PO (13:19)
--- NOTE | 2016-09-21 17:30 | IPN ---
DATE: 09/21/2016 SUBJECTIVE: Patient was seen and examined at the bedside today morning in the intensive care unit (ICU). Patient continues to be on bilevel positive airway pressure (BiPAP). He is unable to be weaned off of the BiPAP. Patient continues to be on intravenous (IV) D5W. His sodium level is improving. His creatinine is also improving. REVIEW OF SYSTEMS: Patient was unable to provide any reliable review of systems. He is currently on the BiPAP at this time. OBJECTIVE: VITAL SIGNS: Temperature is 97.8 degrees Fahrenheit, blood pressure is 125/62, pulse is 140, respiratory rate of 24, saturating 91% on BiPAP at 50% FiO2. Intake and output: Urine output recorded is 1595 mL yesterday and 725 mL so far today since overnight. Weight in the bed scale is 124.1 kg. PHYSICAL EXAMINATION: GENERAL: Patient is awake, wearing BiPAP at this time, in moderate respiratory distress. HEAD AND NECK: Extraocular muscles intact. Pupils equally round and reactive to light. Mucous membranes are dry because of BiPAP. Neck is supple. There is no jugular venous distention (JVD). CARDIOVASCULAR: S1, S2, irregular heart rate, and patient has tachycardia. NO murmur, rub, or gallop. RESPIRATORY: Decreased breath sounds at the bases. Patient has decreased moderate expiratory rhonchi all over the lungs. ABDOMEN: Obese, soft. Positive bowel sounds. Nontender. No ascites. No organomegaly. EXTREMITIES: No clubbing or cyanosis. Pulses are 2+. No edema of the bilateral lower extremities. CENTRAL NERVOUS SYSTEM: Patient has a spastic paralysis of the left upper arm. Otherwise no new focal deficit. SKIN: No rashes at this time. LABORATORY REVIEW: CBC showed a WBC of 13, hemoglobin 12.7, platelets of 241. BMP showed sodium 144, potassium 4.4, chloride 107, bicarbonate 33, BUN 27, creatinine is 1.05. Albumin is 3.2. IMAGING: A chest x-ray done yesterday morning showed no definite acute infiltrate. CURRENT MEDICATIONS: Patient's current medications were all reviewed by me, and his intravenous (IV) fluid rate was changed to D5W at 80 mL an hour. There is no other change in the medications today as compared with yesterday. ASSESSMENT: A 61-year-old male with past medical history of chronic kidney disease, stage III, with a baseline creatinine of around 1.3, history of diastolic congestive heart failure with cor pulmonale, morbid obesity, obstructive sleep apnea, admitted this time with progressive shortness of breath, leukocytosis, and lactic acidosis. He is currently on BiPAP. Nephrology service following the patient for management of acute kidney injury and electrolytes abnormalities. PLAN: 1. Acute kidney injury superimposed on chronic kidney disease, stage III. Patient's renal function is improving with IV fluid hydration. His creatinine actually has improved, better than his baseline. Creatinine is 1.05 today. 2. Hypernatremia. Patient's hypernatremia is improving with IV D5W. Sodium is 144 today. I am going to decrease the IV fluid rate to 80 mL an hour today. 3. Hypercapnic and hypoxemic respiratory failure. Patient is DO NOT RESUSCITATE. He continues to be on BiPAP at this time. BiPAP management is as per pulmonary critical care service. 4. Atrial fibrillation with rapid ventricular rate. Patient went into atrial fibrillation again last night. He has been started on Cardizem drip. He continues to be on IV Cardizem but pulse rate is in 140s to 150s at this time. 5. Goals of care. Primary team is in contact with the patient's family members for possibly making the patient comfort measures only. If patient is made comfort measures, then his IV fluids can be stopped.
--- NOTE | 2016-09-22 15:57 | DS.PDOC ---
Discharge Summary General Date of Admission Sep 16, 2016 at 18:28 Date of Discharge Sep 21, 2016 at 23:40 Attending Physician: CHRISTINA JANE MD Specialist/Consultants Involve: THOMAS BRAVO Specialist/Consultants Involve Dr. Weiner Discharge Summary PROCEDURES PERFORMED DURING STAY: BIPAP ADMITTING/DISCHARGE DIAGNOSES: 1. Acute hypoxic and hypercapnic respiratory failure, dependence on BiPAP 2. End-stage restrictive lung disease 3. Atrial fibrillation with rapid ventricular rate 4. Acute kidney injury on chronic kidney disease 5. Diastolic heart failure with cor pulmonale 6. Moderate intellectual impairments with spastic hemiplegia COMPLICATIONS/CHIEF COMPLAINT: Acute Respiratory Failure. HISTORY OF PRESENT ILLNESS/HOSPITAL COURSE: . This is a 61-year-old male with moderate intellectual impairment, diastolic heart failure, CKD who presented with respiratory failure. Patient was hypercapnic and hypoxic requiring BiPAP ventilation. Patient remained dependent on BiPAP unable to take it off for >10 minutes, and he becomes increasingly tachypneic and SOB. The patient was diuresed, treated empirically with antibiotics, and has been evaluated by pulmonology and nephrology. Patient was also an atrial fibrillation with rapid ventricular response. The patient was managed aggressively with medical therapy, and given his DNR/DNI status, and his decompensated clinical state despite aggressive therapy, the patient was deemed have irreversible lung disease. Formal decision by the state as well as the POA with the decision to make the patient comfort measures only was made. The patient was placed on morphine drip, and FLOOR COVERING PRINTER ASSISTANT protocol was followed. The patient on 09/21/2016. TIME SPENT ON DISCHARGE: Greater than 30 minutes. Vital Signs/I&Os Vital Signs Date Time Temp Pulse Resp B/P Pulse Ox O2 Delivery O2 Flow Rate FiO2 09/21/16 19:30 Nasal Cannula 6.0 09/21/16 11:00 100 143/71 09/21/16 10:00 22 92 50 09/21/16 08:00 97.8 I&O- Last 24 Hours up to 6 AM 09/22/16 06:00 Intake Total 0 ml Output Total 375 ml Balance -375 ml Microbiology Microbiology 09/16/16 Blood Culture - Final, Complete NO GROWTH AFTER 5 DAYS 09/16/16 Blood Culture - Final, Complete NO GROWTH AFTER 5 DAYS 09/17/16 Respiratory Virus Panel (PCR) (CELENA) - Final, Complete 09/16/16 Influenza Virus Type A Antigen - Final, Complete 09/16/16 Influenza Virus Type B Antigen - Final, Complete 09/17/16 Urine Culture - Final, Complete Discharge Medications Scheduled Albuterol/Ipratropium (Ipratropium Harvey/Albut 0.5-2.5 (3) mg/3Ml) 1 Graham Graham 1 GRAHAM INH TID (Reported) Atenolol (Atenolol) 50 Mg Tab 50 MG PO BID (Reported) Clobetasol Propionate (Clobetasol Propionate E) 0.05 % Cre 1 DOSE TOP BID ( Reported) APPLY TO SCROTUAL, SCOOBY, AND BUTTOCKS AREA Docusate Sod/Senna (Senokot S 8.6-50 mg) 1 Tab Tab 2 TAB PO BID (Reported) Ferrous Sulfate (Ferrous Sulfate) 325 Mg Tab 325 MG PO DAILY (Reported) Lactobacillus Acidophilus (Bacid) 1 Tab Tab 1 TAB PO BID (Reported) Lamotrigine (Lamictal) 200 Mg Tab 200 MG PO BID (Reported) Multivitamins *[facility] STOCKED* (Thera M Plus *[facility] STOCKED*) 1 Tab Tab 1 TAB PO DAILY (Reported) Pantoprazole Sodium (Pantoprazole Sodium) 40 Mg Tab 40 MG PO DAILY (Reported) Terconazole (Terconazole) 0.4 % Cre 1 DOSE TOP BID (Reported) APPLY UNDER RIGHT ARM Scheduled PRN (Enema) 1 Susan Susan 1 SUSAN [place] DAILY PRN PRN CONSTIPATION (Reported) Acetaminophen (Tylenol) 325 Mg Tab 650 MG PO Q4H PRN PRN PAIN / FEVER (Reported ) Albuterol Sulfate (Albuterol Sulfate) 2.5 Mg/3 Ml Nebu 2.5 MG INH Q2HP PRN PRN SHORTNESS OF BREATH (Reported) Atropine Sulfate (Atropine Sulfate) 1 % Graham 1-2 DROP PO Q2H PRN PRN TERMINAL SECRETIONS Use sublingually if unable to swallow MDD = 36 drops Bisacodyl (Dulcolax) 10 Mg Sup 10 MG TX DAILY PRN PRN CONSTIPATION (Reported) Docusate Sod/Senna (Senokot S 8.6-50 mg) 1 Tab Tab 1 TAB PO BID PRN PRN CONSTIPATION (Reported) Loperamide HCl (Loperamide A-D) 2 Mg Tab 2 MG PO ASDIRECTED PRN PRN DIARRHEA ( Reported) 2 TABS AFTER FIRST LOOSE STOOL, THEN ONE TAB AFTER EACH LOOSE STOOL Lorazepam (Lorazepam) 1 Mg Tab 0.5 TAB PO Q4H PRN PRN ANXIETY/AGITATION Use sublingually if unable to swallow MDD = 3 mg Milk Of Magnesia (Milk of Magnesia) 1,200 Mg/15 Ml Kenia 30 ML PO DAILY PRN PRN CONSTIPATION (Reported) Morphine Sulfate (Morphine Sulfate Concentrate) 10 Mg/0.5 Ml Conc 0.25-1 ML PO Q2H PRN PRN PAIN OR DYSPNEA Use sublingually if unable to swallow MDD = 12 ml Allergies Coded Allergies: Penicillins (Verified Allergy, Unknown, 10/15/12) CHRISTINA JANE MD Sep 22, 2016 15:56
== END 2016-09-21 23:40 | disposition expired | DRG 189 ==
LOC: EDBD 16:26 → M ED 18:27 → M ED INP 18:28 → M ICU 21:00 → M MSPAV 09-21 14:47
PROVIDERS: ADMIT Internal Medicine; ATTEND Internal Medicine
DX: J96.01 Acute respiratory failure with hypoxia (principal); I50.32 Chronic diastolic (congestive) heart failure; G80.2 Spastic hemiplegic cerebral palsy; Z68.41 Body mass index [BMI] 40.0-44.9, adult; E87.4 Mixed disorder of acid-base balance; E87.0 Hyperosmolality and hypernatremia; Z51.5 Encounter for palliative care; Z66 Do not resuscitate; J96.02 Acute respiratory failure with hypercapnia; E11.9 Type 2 diabetes mellitus without complications; I27.81 Cor pulmonale (chronic); E66.01 Morbid (severe) obesity due to excess calories; G47.33 Obstructive sleep apnea (adult) (pediatric); F71 Moderate intellectual disabilities; J98.4 Other disorders of lung; N18.3 Chronic kidney disease, stage 3 (moderate); I48.91 Unspecified atrial fibrillation; K21.9 Gastro-esophageal reflux disease without esophagitis; R13.10 Dysphagia, unspecified; M21.372 Foot drop, left foot; Z79.51 Long term (current) use of inhaled steroids; Z86.14 Personal history of Methicillin resistant Staphylococcus aureus infection; Z79.01 Long term (current) use of anticoagulants; Z79.899 Other long term (current) drug therapy; Z88.0 Allergy status to penicillin